=== PATIENT | male | born 1940 | race Caucasian/White ===

== ENCOUNTER 2017-03-08 15:24 | Inpatient (IN) | payer MEDICARE ==
[~2017-03-08] VITALS: Ht 175.3 cm; Wt 79.2 kg
[~2017-03-08 15:24] MED LIST: CO Q100C9 OR; ENAL10TA7 PO; FISH500C PO; PROBCAP4 OR; SIMV40TA OR; VITA-13
[2017-03-08 15:26] VITALS: BP 169/89; PULSE 75; RESP 15; TEMP 98.4; O2SAT 98
[2017-03-08] MEDS ORDERED: SODIUM CHLOR 0.9% 1000 ML INJ 1,000 ML IV ONE (15:44)
[2017-03-08 16:11] LABS: BASOPHIL # 0.1 TH/MM3 (0-0.2); BASOPHIL % 0.7 % (0.0-2.0); EOSINOPHIL # 0.3 TH/MM3 (0-0.4); EOSINOPHIL % 3.4 % (0.0-4.0); HEMATOCRIT 45.5 % (39.0-51.0); HEMO FLAGS DIFF FINAL; LYMPH % 25.6 % (9.0-44.0); LYMPHOCYTE # 2.5 TH/MM3 (1.0-4.8); MEAN CELL VOLUME 93.4 FL (80.0-100.0); MEAN CORPUSCULAR HEMOGLOBIN 33.2 PG (27.0-34.0); MEAN CORPUSCULAR HGB CONC 35.6 % (32.0-36.0); MONO % 9.3 % (0.0-8.0); PLATELET COUNT 245 TH/MM3 (150-450); RED BLOOD COUNT 4.88 MIL/MM3 (4.50-5.90); RED CELL DISTRIBUTION WIDTH 12.1 % (11.6-17.2); WHITE BLOOD COUNT 9.9 TH/MM3 (4.0-11.0)
[2017-03-08 16:12] LABS: I-STAT POTASSIUM 3.3 MMOL/L (3.5-4.9); I-STAT SODIUM 140 MMOL/L (138-146)
[2017-03-08] MEDS ORDERED: IOHEXOL 350 MG/ML 10 ML VIAL (for RAD DIAG) IVCONTRAST ONE (16:13)
[2017-03-08] MEDS ORDERED: MISCELLANEOUS NURSING INFORMATION XX PRN (16:15)
[2017-03-08] MEDS ORDERED: SODIUM CHLORIDE 0.9% 50 ML BAG IVF ONE (16:15)
[2017-03-08] MEDS ORDERED: ALTEPLASE DRIP IV ONE (16:15)
[2017-03-08] MEDS ORDERED: ALTEPLASE BOLUS 9 MG/9 ML SYR IV ONE (16:15)
--- NOTE | 2017-03-08 16:15 | RADRPT ---
EXAM DATE/TIME: 03/08/2017 15:46 [facility] COMPARISON: No previous studies available for comparison. INDICATIONS : Stroke Alert- Difficult with talking. RADIATION DOSE: 56.35 CTDIvol (mGy) This report was called by Dr Hoover to Dr. Cooper at 1558 hours. MEDICAL HISTORY : Non-responsive. SURGICAL HISTORY : Non-responsive. ENCOUNTER: Initial ACUITY: 1 day PAIN SCALE: Non-responsive LOCATION: cranial TECHNIQUE: Multiple contiguous axial images were obtained of the head. Using automated exposure control and adj ustment of the mA and/or kV according to patient size, radiation dose was kept as low as reasonably a chievable to obtain optimal diagnostic quality images. DICOM format image data is available electro nically for review and comparison. FINDINGS: CEREBRUM: There is generalized atrophy. Ventricles are normal in size. There is moderate to severe periventricu lar white matter low attenuation. Old lacune is present in the right basal ganglia. No evidence of m idline shift, mass lesion, hemorrhage or acute infarction. No extra-axial fluid collections are seen . POSTERIOR FOSSA: The cerebellum and brainstem are intact. The 4th ventricle is midline. The cerebellopontine angle i s unremarkable. EXTRACRANIAL: There is mucoperiosteal thickening in the right maxillary sinus. SKULL: The calvaria is intact. No evidence of skull fracture. CONCLUSION: 1. No acute intracranial abnormality is identified. 2. Chronic changes include moderate to severe periventricular white matter low attenuation characteri stic of chronic microvascular ischemia and old lacune in the right basal ganglia. Michael Hoover MD on March 08, 2017 at 16:11 Board Certified Radiologist. This report was verified electronically.
[2017-03-08 16:33] LABS: CREATINE KINASE 64 U/L (39-308)
--- NOTE | 2017-03-08 16:40 | RADRPT ---
EXAM DATE/TIME: 03/08/2017 15:54 [facility] COMPARISON: No previous studies available for comparison. INDICATIONS : Stroke alert, difficulty speaking. IV CONTRAST: 75 cc Omnipaque 350 (iohexol) IV ; Cumulative dose for multiple exams. RADIATION DOSE: 48.97 CTDIvol (mGy) ; Combined studies MEDICAL HISTORY : Non-responsive. SURGICAL HISTORY : Non-responsive. ENCOUNTER: Initial ACUITY: 1 day PAIN SCALE: Non-responsive LOCATION: cranial TECHNIQUE: Volumetric scanning was performed using a multi-row detector CT scanner. The data was post processed with a variety of visualization algorithms including full volume maximum intensity projection, multi -planar sliding thin slab reformation, curved planar reformation, and surface rendering techniques. Using automated exposure control and adjustment of the mA and/or kV according to patient size, radiat ion dose was kept as low as reasonably achievable to obtain optimal diagnostic quality images. DICO M format image data is available electronically for review and comparison. FINDINGS: Anterior circulation: The internal carotid arteries demonstrate no acute abnormality. There is atherosclerotic calcificatio n. A1 segments and more distal anterior cerebral arteries are symmetric and within normal limits. The middle cerebral artery branches demonstrate symmetric flow related enhancement. No aneurysm or high- grade stenosis is identified. Posterior circulation: The right vertebral artery appears occluded near the level of the foramen magnum. There is calcificat ion in the right vertebral artery. Left vertebral artery demonstrates enhancement. There is minimal f low in the distal basilar artery and there is an approximately 8 mm segment of occlusion in the dista l basilar artery likely related to thrombus. There are patent posterior communicating arteries bilate rally supplying the posterior cerebral arteries. CONCLUSION: The right distal vertebral artery is occluded near the level of the foramen magnum. Basilar artery de monstrates an 8 mm length segment of occlusion likely related to thrombus. Currently, the posterior c erebral artery blood flow is supplied by patent posterior communicating arteries bilaterally. Michael Hoover MD on March 08, 2017 at 16:30 Board Certified Radiologist. This report was verified electronically.
[2017-03-08 16:59] LABS: APTT (PATIENT) 22.8 SEC (24.3-30.1); PROTHROMBIN TIME - PATIENT 10.6 SEC (9.8-11.6)
--- NOTE | 2017-03-08 17:06 | RADRPT ---
EXAM DATE/TIME: 03/08/2017 15:54 [facility] COMPARISON: No previous studies available for comparison. INDICATIONS : Stroke alert, difficulty speaking. IV CONTRAST: 75 cc Omnipaque 350 (iohexol) IV ; Cumulative dose for multiple exams. RADIATION DOSE: 48.97 CTDIvol (mGy) ; Combined studies MEDICAL HISTORY : Non-responsive. SURGICAL HISTORY : Non-responsive. ENCOUNTER: Initial ACUITY: 1 day PAIN SCALE: 0/10 LOCATION: cranial Elevated flow velocities and ICA/CCA ratios have been found to correlate with increased degrees of vessel stenosis, calculated as percentage of diameter relative to a normal segment of distal ICA/CCA. TECHNIQUE: Volumetric scanning was performed using a multirow detector CT scanner. The data was post processed with a variety of visualization algorithms including full-volume maximum intensity projection, multip lanar sliding thin-slab reformation, curved-planar reformation, and surface-rendering techniques. Us ing automated exposure control and adjustment of the mA and/or kV according to patient size, radiatio n dose was kept as low as reasonably achievable to obtain optimal diagnostic quality images. DICOM f ormat image data is available electronically for review and comparison. FINDINGS: AORTIC ARCH: Great vessels demonstrate no acute finding. There is mild atherosclerotic disease of aorta. Left vert ebral artery originates from the arch. RIGHT CAROTID: Common carotid artery demonstrates no significant abnormality. There is noncalcified plaque in the ca rotid bulb. No significant stenosis is present. Internal carotid artery demonstrates no significant a bnormality. LEFT CAROTID: Common carotid artery demonstrates no significant abnormality. There is noncalcified plaque in the ca rotid bulb. No significant stenosis is present. Internal carotid artery demonstrates no significant a bnormality. VERTEBRALS: The right vertebral artery is occluded at the C1 level and just before entering the foramen magnum. L eft vertebral artery demonstrates no abnormality. CONCLUSION: 1. 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 2. Mild atherosclerotic calcification in the carotid bulbs bilaterally. However, no significant steno sis is present within either internal carotid artery. Michael Hoover MD on March 08, 2017 at 17:01 Board Certified Radiologist. This report was verified electronically.
[2017-03-08] MEDS: INSULIN ASPART SUPPLEMENTAL SCALE SQ SCH ×2 (17:15→18:00)
[2017-03-08] MEDS ORDERED: GLUCAGON 1 MG/ML VIAL OTHER PRN (17:15)
[2017-03-08] MEDS ORDERED: LABETALOL HCL 100 MG/20 ML VIAL IV PRN (17:15)
[2017-03-08] MEDS ORDERED: DEXTROSE 50% IN WATER 50 ML VIAL(D50) IV PUSH PRN (17:15)
--- NOTE | 2017-03-08 17:18 | RADRPT ---
EXAM DATE/TIME: 03/08/2017 16:24 [facility] COMPARISON: No previous studies available for comparison. INDICATIONS : Stroke alert. MEDICAL HISTORY : unobtainable SURGICAL HISTORY : unobtainable ENCOUNTER: Initial ACUITY: 1 day PAIN SCORE: Non-responsive. LOCATION: Bilateral upper chest FINDINGS: Nodular opacity in the central right lower lung zone may reflect an enlarged vessel on end. Lungs are otherwise clear. Cardiac base contours are within normal limits. Bony thorax is intact. CONCLUSION: 1. Approximately 1 cm nodular opacity in the central right lower lung zone likely reflects an enlarge d pulmonary vessel on end. Consider formal PA and lateral views of the chest for better evaluation on ce patient is more stable. Aidan Becerra MD on March 08, 2017 at 17:15 Board Certified Radiologist. This report was verified electronically.
--- NOTE | 2017-03-08 17:31 | PD ---
HPI Chief Complaint: Neuro Symptoms/ Deficits Time Seen by Provider: 15:43 Travel History International Travel<30 days: No Contact w/Intl Traveler<30days: No Traveled to known affect area: No History of Present Illness HPI 76 old man presents emergent arm brought in by his for abnormal behavior. He was well until noon. Started getting some headache there. says he described it is pretty significant. Around 1:00 he started getting speech difficulties with slurred speech and word finding difficulties. Around 2:00 he started having obvious confusion and difficulty with simple past. An emergent part areas not able to follow questions are answered commands. History Past Medical History Narrative Medical History of occult wasn't, recently started Antabuse On medicine for dementia History of diabetes in the remote past, no diabetes since gastric bypass in 2011 Hypertension Tetanus Vaccination: Unknown Social History Alcohol Use: Yes (COUPLE DRINKS A DAY) Tobacco Use: No Allergies-Medications (Allergen,Severity, Reaction): Coded Allergies: Sulfa (Sulfonamide Antibiotics) (Unverified Allergy, Severe, 03/08/17) Reported Meds & Prescriptions Reported Meds & Active Scripts Active Reported Vitamin D3 (Cholecalciferol) 1,000 Unit Tab 1,000 Unit .XX Fish Oil 500 Mg Cap 500 Mg PO Co Q 10 (Coenzyme Q10) 100 Mg Cap 100 Mg OR Probiotic Acidophilus (Acidophilus) Cap 1 OR BID Enalapril Maleate/Hydroch (Enalapril Maleate & Hydrochlor) 10 Mg Tab 10 Mg PO BID Simvastatin 40 Mg Tab 40 Mg OR HS Review of Systems Except as stated in HPI: all other systems reviewed are Neg Physical Exam Narrative GENERAL: 76 old man, ill-appearing, agitated, confused. SKIN: Focused skin assessment warm/dry. HEAD: Atraumatic. Normocephalic. EYES: Pupils equal and round. No scleral icterus. No injection or drainage. ENT: No nasal bleeding or discharge. Mucous membranes pink and moist. NECK: Trachea midline. No JVD. CARDIOVASCULAR: Regular rate and rhythm. No murmur appreciated. RESPIRATORY: No accessory muscle use. Clear to auscultation. Breath sounds equal bilaterally. GASTROINTESTINAL: Abdomen soft, non-tender, nondistended. Hepatic and splenic margins not palpable. MUSCULOSKELETAL: No obvious deformities. No clubbing. No cyanosis. No edema. NEUROLOGICAL: Little bit agitated but overall decreased alertness as far as responding to external stimuli. He has no obvious facial droop or cranial nerve deficits. He cannot answer questions or follow commands. If you ask him his name he will saddle no. He seems a log as a certain stereotyped phrases such as I don't know. He will not follow commands. Yes, hold his arms up he seems always dropped the right first a could suggest a little bit of droop. He is no obvious gross weakness. Sensation appears to be intact throughout. He has no sharon-neglect or gaze palsies. NIH stroke scale of 8. PSYCHIATRIC: Appropriate mood and affect; insight and judgment normal. Data Data Last Documented VS Vital Signs Date Time Temp Pulse Resp B/P (MAP) Pulse Ox O2 Delivery O2 Flow Rate FiO2 03/08/17 15:55 Nasal Cannula 2.00 03/08/17 15:26 98.4 75 15 169/89 (115) 98 Orders Orders Diet Npo (03/08/17 Dinner) Activity Bed Rest (03/08/17 ) Electrocardiogram (03/08/17 ) I-Stat Creatinine (03/08/17 15:44) I-Stat Profile (03/08/17 15:44) Prothrombin Time / Inr (Pt) (03/08/17 15:44) Act Partial Throm Time (Ptt) (03/08/17 15:44) Complete Blood Count With Diff (03/08/17 15:44) Fibrinogen (03/08/17 15:44) Creatine Kinase (Cpk) (03/08/17 15:44) Troponin I (03/08/17 15:44) Ua Includes Microscopic (03/08/17 15:44) Drug Screen, Random Urine (03/08/17 15:44) Type And Screen (03/08/17 15:44) Ct Brain W/O Iv Contrast(Rout) (03/08/17 ) Consult Neurology (03/08/17 ) Blood Glucose (03/08/17 15:44) Ecg Monitoring (03/08/17 15:44) Neuro Checks Q2HX12,Q4H (03/08/17 15:44) Nursing Bedside Swallow Assess .ONCE (03/08/17 15:44) Iv Access Insert/Monitor (03/08/17 15:44) NPO (03/08/17 15:44) Oximetry (03/08/17 15:44) Oxygen Administration (03/08/17 15:44) Sodium Chlor 0.9% 1000 Ml Inj (Ns 1000 M (03/08/17 15:44) Resp Oxygen Juliocesar C Titrat 1-4 L (03/08/17 15:44) Cath For Specimen (03/08/17 15:44) Chest, Single Ap (03/08/17 ) Cta Neck W Iv Contrast W 3d (03/08/17 ) Cta Brain W Iv Contrast W 3d (03/08/17 ) Alcohol (Ethanol) (03/08/17 15:49) ^ Call Pharmacy (03/08/17 16:12) Nih Stroke Scale - Nihss .ONCE (03/08/17 16:12) Urinary Catheter Insert/Apply (03/08/17 16:12) Anticoagulant Alert (03/08/17 16:12) ^ Post Infusion Restrictions (03/08/17 16:12) ^ Medication Alert (03/08/17 16:12) Vital Signs (Adult) .As directed (03/08/17 16:12) Notify Dr: Blood Pressure (03/08/17 16:12) ^ Medication Alert (03/08/17 16:12) Alteplase Bolus (Activase Bolus) (03/08/17 16:15) Alteplase Drip (Activase Drip) (03/08/17 16:15) Sodium Chloride 0.9% Inj (Ns Inj) (03/08/17 16:15) [facility] Nursing Information (03/08/17 16:15) Resp Oxygen Juliocesar C Titrat 1-4 L (03/08/17 ) Ct Brain W/O Iv Contrast(Rout) (03/09/17 ) Iohexol 350 Inj (Omnipaque 350 Inj) (03/08/17 16:13) (Hub Use Only)Inp Phy Cons/Ref (03/08/17 ) Admit Order (Ed Use Only) (03/08/17 ) Labs Laboratory Tests Test 03/08/17 15:45 03/08/17 16:06 White Blood Count 9.9 TH/MM3 Red Blood Count 4.88 MIL/MM3 Hemoglobin 16.2 GM/DL Hematocrit 45.5 % Mean Corpuscular Volume 93.4 FL Mean Corpuscular Hemoglobin 33.2 PG Mean Corpuscular Hemoglobin Concent 35.6 % Red Cell Distribution Width 12.1 % Platelet Count 245 TH/MM3 Mean Platelet Volume 8.0 FL Neutrophils (%) (Auto) 61.0 % Lymphocytes (%) (Auto) 25.6 % Monocytes (%) (Auto) 9.3 % Eosinophils (%) (Auto) 3.4 % Basophils (%) (Auto) 0.7 % Neutrophils # (Auto) 6.0 TH/MM3 Lymphocytes # (Auto) 2.5 TH/MM3 Monocytes # (Auto) 0.9 TH/MM3 Eosinophils # (Auto) 0.3 TH/MM3 Basophils # (Auto) 0.1 TH/MM3 CBC Comment DIFF FINAL Differential Comment Prothrombin Time 10.6 SEC Prothromb Time International Ratio 1.0 RATIO Activated Partial Thromboplast Time 22.8 SEC Fibrinogen 450 mg/dL Ethyl Alcohol Level LESS THAN 3 MG/DL Bedside Hemoglobin 15.3 G/DL Bedside Hematocrit 45.0 % Bedside Sodium 140 MMOL/L Bedside Potassium 3.3 MMOL/L Bedside Chloride 104 MMOL/L Bedside Blood Urea Nitrogen 13 MG/DL Bedside Creatinine 0.8 MG/DL Bedside Glucose 103 MG/DL Total Creatine Kinase 64 U/L Troponin I LESS THAN 0.02 NG/ML MDM Medical Decision Making Medical Screen Exam Complete: Yes Emergency Medical Condition: Yes Differential Diagnosis CVA, seizure, bleed, other Narrative Course 76 old man presents emergency department as a stroke alert. He looked a little bit ill. He had a stroke scale 8 based mostly on inability answer or follow commands aphasia and maybe a little bit of right sided drift. No other obvious lateralizing symptoms. CT was negative for acute bleed. Patient was given TPA. Time frame of last seen normal 1 PM put him right at 3 hours. He has a remote history of diabetes in the past but no history of diabetes now. This was discussed with Dr. Barakat. Decision was made after discussion with the family to proceed with TPA. Verbal consent was obtained from the . Patient will be admitted to the ICU. Critical Care Narrative Aggregate critical care time was 20 minutes. Time to perform other separately billable procedures was not included in the critical care time. My time did not include minutes spent treating any other patients simultaneously or on activities that did not directly contribute to the patient's treatment. The services I provided to this patient were to treat and/or prevent clinically significant deterioration that could result in: or disability. Worsening stroke. I provided critical care services requiring my management, as noted below: Chart data review, documentation time, medication orders and management, vital sign assessments/reviewing monitor data, ordering and reviewing lab tests, ordering and interpreting/reviewing x-rays and diagnostic studies, care of the patient and discussion of the patient with the admitting physicians. Diagnosis Primary Impression: Acute CVA (cerebrovascular accident) Admitting Information Admitting Physician Requests: Admit Karan Cooper MD Mar 08, 2017 17:31
[2017-03-08 18:04] LABS: BLOOD, URINE NEG (NEG); GLUCOSE,URINE NEG (NEG); KETONE, URINE 80 mg/dL (NEG); NITRITE,URINE NEG (NEG); SQUAMOUS EPITHELIAL CELL URINE <1 /hpf (0-5); URINE COLOR LIGHT-YELLOW (YELLW/STRAW)
[2017-03-08] MEDS ORDERED: LABETALOL HCL 100 MG/20 ML VIAL IV PUSH PRN (18:15)
--- NOTE | 2017-03-08 18:21 | HHI.HP ---
HPI Service Critical Care Medicine Primary Care Physician Unknown Admission Diagnosis CVA Diagnosis: Chief Complaint: Garbled speech, confusion, headache. Travel History International Travel<30 Days: No Contact w/Intl Traveler <30 Da: No Traveled to Known Affected Are: No History of Present Illness 76 y/o man right handed man developed garbled speech and confusion. 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 Received tPA about 3 hours after onset. Initially very weak right arm. After tPA he has improved motor strength right arm, but not normal. History significant for diabetes, cured by gastric bypass surgery. Heavy alcohol consumption history, now on Antabuse and not drinking. Has had diagnosis of dementia since 2015. Neurology consult expressed concern about risk of bleed after tPA, will control BP appropriately with that in mind. Review of Systems ROS Confused, unobtainable. Past Family Social History Allergies: Coded Allergies: Sulfa (Sulfonamide Antibiotics) (Unverified Allergy, Severe, 03/08/17) Physical Exam Vital Signs Vital Signs Date Time Temp Pulse Resp B/P (MAP) Pulse Ox O2 Delivery O2 Flow Rate FiO2 03/08/17 15:55 Nasal Cannula 2.00 03/08/17 15:26 98.4 75 15 169/89 (115) 98 Physical Exam Gen: Ill-appearing, confused. Head: Atraumatic. Neck: Supple, airway widely patent. No obstruction. Lungs: Clear, no adventitious sounds. Heart: NL S1S2, RRR. No JVD. Abdomen: Soft, no guarding. Extremities: Warm, well perfused. Neuro: PINO, 3 mm malcom. Right arm 2/5, left arm 4/5. Opens eyes to voice. Does not track for more than 3 secs. Seems to focus. Protects airway. Speech confused , garbled. Laboratory Laboratory Tests Test 03/08/17 15:45 03/08/17 16:06 03/08/17 17:00 White Blood Count 9.9 Red Blood Count 4.88 Hemoglobin 16.2 Hematocrit 45.5 Mean Corpuscular Volume 93.4 Mean Corpuscular Hemoglobin 33.2 Mean Corpuscular Hemoglobin Concent 35.6 Red Cell Distribution Width 12.1 Platelet Count 245 Mean Platelet Volume 8.0 Neutrophils (%) (Auto) 61.0 Lymphocytes (%) (Auto) 25.6 Monocytes (%) (Auto) 9.3 Eosinophils (%) (Auto) 3.4 Basophils (%) (Auto) 0.7 Neutrophils # (Auto) 6.0 Lymphocytes # (Auto) 2.5 Monocytes # (Auto) 0.9 Eosinophils # (Auto) 0.3 Basophils # (Auto) 0.1 CBC Comment DIFF FINAL Differential Comment Prothrombin Time 10.6 Prothromb Time International Ratio 1.0 Activated Partial Thromboplast Time 22.8 Fibrinogen 450 Ethyl Alcohol Level LESS THAN 3 Bedside Hemoglobin 15.3 Bedside Hematocrit 45.0 Bedside Sodium 140 Bedside Potassium 3.3 Bedside Chloride 104 Bedside Blood Urea Nitrogen 13 Bedside Creatinine 0.8 Bedside Glucose 103 Total Creatine Kinase 64 Troponin I LESS THAN 0.02 Result Diagram: 03/08/17 9980 Caprini VTE Risk Assessment Caprini VTE Risk Assessment: No/Low Risk (score <= 1) Caprini Risk Assessment Model Point Value = 1 Point Value = 2 Point Value = 3 Point Value = 5 Age 41-60 Minor surgery BMI > 25 kg/m2 Swollen legs Varicose veins or History of unexplained or recurrent spontaneous Oral contraceptives or hormone replacement Sepsis (< 1 month) Serious lung disease, including pneumonia (< 1 month) Abnormal pulmonary function Acute myocardial infarction Congestive heart failure (< 1 month) History of inflammatory bowel disease Medical patient at bed rest Age 61-74 Arthroscopic surgery Major open surgery (> 45 min) Laparoscopic surgery (> 45 min) Malignancy Confined to bed (> 72 hours) Immobilizing plaster cast Central venous access Age >= 75 History of VTE Family history of VTE Factor V Leiden Prothrombin [id number] Lupus anticoagulant Anticardiolipin antibodies Elevated serum homocysteine Heparin-induced thrombocytopenia Other congenital or acquired thrombophilia Stroke (< 1 month) Elective arthroplasty Hip, pelvis, or leg fracture Acute spinal cord injury (< 1 month) Prophylaxis Regimen Total Risk Factor Score Risk Level Prophylaxis Regimen 0-1 Low Early ambulation 2 Moderate Order ONE of the following: *Sequential Compression Device (SCD) *Heparin 5000 units SQ BID 3-4 Higher Order ONE of the following medications: *Heparin 5000 units SQ TID *Enoxaparin/Lovenox 40 mg SQ daily (WT < 150 kg, CrCl > 30 mL/min) *Enoxaparin/Lovenox 30 mg SQ daily (WT < 150 kg, CrCl > 10-29 mL/min) *Enoxaparin/Lovenox 30 mg SQ BID (WT < 150 kg, CrCl > 30 mL/min) AND/OR *Sequential Compression Device (SCD) 5 or more Highest Order ONE of the following medications: *Heparin 5000 units SQ TID (Preferred with Epidurals) *Enoxaparin/Lovenox 40 mg SQ daily (WT < 150 kg, CrCl > 30 mL/min) *Enoxaparin/Lovenox 30 mg SQ daily (WT < 150 kg, CrCl > 10-29 mL/min) *Enoxaparin/Lovenox 30 mg SQ BID (WT < 150 kg, CrCl > 30 mL/min) AND *Sequential Compression Device (SCD) Assessment and Plan Assessment and Plan Assessment: 1. Acute CVA. 2. Hypertension. 3. Chronic alcoholism. 4. Dementia Plan: 1. Maintain BP < 160/90. 2. No antiplatelet rx tonight. 3. Serial neuro exams. 4. Maintenance iv fluid. 5. Cardiac ECHO a.m. 6. Airway precautions. 7. Protonix. 8. SCDs. Overall impression: Acute CVA. Unstable hemodynamics and critically ill. Basilar artery distribution thrombus. Received tPA. Patient is not a candidate for IR extraction treatment; patient is a chronic alcoholic, very frail, and has advancing dementia over past 2 years with significant worsening over past [address] Jamil who recommends lower blood pressure control below 160/90 range. I had a lengthy discussion with his and her neighbor in the ED. I explained the risks and benefits of clot extraction in this location. They have decided to not attempt that and will stay at [facility] for care. Critical Care 45 mins Nate Siddiqui MD Mar 08, 2017 18:21
[2017-03-08 18:48] VITALS: BP 172/89
[2017-03-08] MEDS: hydrALAZINE HCL 20 MG/ML VIAL IV PUSH PRN ×2 (19:40→21:53)
[2017-03-08 20:00] VITALS: BP 172/84; PULSE 78; PULSE 84; RESP 22; TEMP 97.9; O2SAT 98
[2017-03-08] MEDS: niCARdipine INJ 25 MG in SODIUM CHLOR 0.9% 250 ML INJ 250 ML IV PRN (20:12)
[2017-03-08 20:18] VITALS: O2SAT 97
[2017-03-08] MEDS ORDERED: HYDROCHLOR PO SCH (21:00)
[2017-03-08] MEDS ORDERED: ENALAPRIL MALEATE PO SCH (21:00)
[2017-03-08] MEDS: PRAVASTATIN SOD 80 MG TAB PO SCH (21:00)
[2017-03-08] MEDS ORDERED: POTASSIUM CHLOR 40 MEQ PREMIX 100 ML IV PRN ×2 (21:45)
[2017-03-08] MEDS ORDERED: MAGNESIUM OXIDE 400 MG TAB PO PRN (21:45)
[2017-03-08] MEDS ORDERED: POTASSIUM CHLORIDE 25 MEQ EFFERVESCENT TAB PO PRN (21:45)
[2017-03-08] MEDS ORDERED: POTASSIUM PHOSPHATE MONOBASIC 500 MG TAB PO PRN (21:45)
[2017-03-08] MEDS ORDERED: SODIUM PHOSPHATE INJ 30 MMOL in SODIUM CHLOR 0.9% 250 ML INJ 240 ML IV PRN (21:45)
[2017-03-08] MEDS ORDERED: MAGNESIUM SULFATE INJ 2 GM in SODIUM CHLORIDE 0.9% INJ 96 ML IV PRN (21:45)
[2017-03-08] MEDS ORDERED: POTASSIUM PHOSPHATE INJ 30 MMOL in SODIUM CHLOR 0.9% 250 ML INJ 250 ML IV PRN (21:45)
[2017-03-08] MEDS ORDERED: MAGNESIUM SULFATE INJ 4 GM in SODIUM CHLORIDE 0.9% INJ 92 ML IV PRN (21:45)
[2017-03-08] MEDS ORDERED: POTASSIUM CHLOR 20 MEQ PREMIX 100 ML IV PRN (21:45)
[2017-03-08] MEDS ORDERED: POTASSIUM PHOSPHATE MONOBASIC 500 MG TAB PO/TUBE PRN (21:45)
[2017-03-08 22:00] VITALS: PULSE 96
[2017-03-08] MEDS: POTASSIUM CHLOR 20 MEQ PREMIX 100 ML IV PRN (22:37)
--- NOTE | 2017-03-08 23:39 | MB ---
cc: KEATON ALMARAZ MD DATE OF CONSULTATION 03/08/17 REASON FOR CONSULTATION Stroke alert. HISTORY OF PRESENT ILLNESS Mr. Oseguera is a 76-year-old male who presented to the [facility] Emergency Room brought by his for noticing an abnormal behavior that started fairly afternoon where he complained of headache, as per significant headache, then around 1:00 p.m. today, 03/08/2017, he started getting speech difficulty, slurred speech and word finding difficulties. Then this was followed by confusion. Thus he was brought by his . The patient NIH stroke scale was 8. Head CT scan did not show any acute intracranial bleeding. Thus, he was a candidate for TPA that he received intravenously. A CTA of the head and neck also was ordered and the patient admitted to the ICU. After he received the TPA there was some mild blood from the mucosa of the mouth. I have discussed the condition with the and her neighbor and Dr. aSmano, the senior analysis specialist and I let the know that there are only a few centers that have ability of working on a high grade vertebral artery stenosis, however, given the condition of the patient, age and the very high-grade stenosis the agreed on continuing of supportive therapy. Head CTA revealed right distal vertebral artery occlusion at the level of the foramen magnum and a basilar artery with 8 mm length segment occlusion related to the thrombus. Neck CTA revealed occlusion of the distal right vertebral artery around the C1 level near the foramen magnum with mild atherosclerotic calcification of the carotid bulbs bilaterally. No significant stenosis in either ICA. REVIEW OF SYSTEMS A 12-point review of systems negative except for what is stated in the HPI. ALLERGIES SULFA. FAMILY HISTORY Unable to obtain. SOCIAL HISTORY Daily couple of drinks. No tobacco. PAST MEDICAL HISTORY Currently on Antabuse. PAST MEDICAL HISTORY Hypertension, dementia, diabetes, hypertension. PAST SURGICAL HISTORY Gastric bypass. MEDICATIONS 1. Vitamin D3. 2. Fish oil. 3. CoQ. 4. Probiotic. 5. Enalapril. 6. Simvastatin. PHYSICAL EXAMINATION GENERAL: Awake. Irritable, not oriented, agitated. HEENT: Atraumatic, normocephalic. Congested flushed face. Intact hearing. CARDIOVASCULAR: Regular rate and rhythm. RESPIRATORY: Clear to auscultation. No wheezes. GASTROINTESTINAL: Soft, nontender. MUSCULOSKELETAL: Moves four extremities equally. No edema, no cyanosis. NEUROLOGIC: Awake, not oriented to person, place or time. Responds to verbal commands by mumbling the word okay. He has no facial asymmetry. No gaze deviation. Pupils 3 mm equal reacting. Moves all extremity. Unable to accurately assess the motor system due to the patient being minimally verbal. His right upper and lower extremity seemed to be weaker than the left. He cannot hold the particularly the right lower extremity where he cant hold it straight up, however, unable to accurately assess. Reflexes 2+ bilateral, symmetrical. LABORATORY DATA White blood cells 9.9, hemoglobin 16.2, platelet 245, sodium 140, potassium 3.3, BUN 13, creatinine 0.8. UA is negative. DIAGNOSTICS IMAGING STUDIES - Head CT without contrast revealed no acute intracranial abnormality, chronic changes include moderate severe periventricular white matter. Low attenuation characteristic of chronic vascular ischemia and old lacunar infarcts in the right basal ganglia - Head CTA with IV contrast revealed right distal vertebral artery is occluded near the level of the foramen magnum. Basilar artery demonstrates an 8 mm length segment of occlusion likely relate to the thrombus. - Neck CTA revealed occlusion of the ___vertebral around C1 level near the foramen magnum. Mild atherosclerotic calcification in the carotid bulbs bilaterally. DIAGNOSTIC IMPRESSION 1. Acute ischemic thrombotic posterior circulation stroke. 2. Hypertension. 3. History of chronic alcoholism. 4. Dementia. PLAN 1. Neuro checks q. one hourly. 2. Maintain blood pressure less than 160/90. 3. No antiplatelet or anticoagulation for the next 24 hours. 4. Cardiac echo. 5. Telemetry. 6. Repeat head CT scan after 12 hours or if there is change in the neurologic status. 7. SCD, DVT prophylaxis. 8. GI prophylaxis. Thank you for the opportunity to participate in the care of your patient. MD CLIFTON Jorge/SEBASTIAN /10:00 PM /11:01 PM CHRISTOPH
[2017-03-09] VITALS (14 sets, daily range): BP systolic 136–156; BP diastolic 69–78; PULSE 65–98; RESP 19–29; TEMP 98.1–99.1; O2SAT 97–100
[2017-03-09] MEDS: niCARdipine INJ 25 MG in SODIUM CHLOR 0.9% 250 ML INJ 250 ML IV PRN ×4 (01:32→18:19)
[2017-03-09] MEDS: POTASSIUM CHLOR 20 MEQ PREMIX 100 ML IV PRN (02:28)
[2017-03-09] MEDS: INSULIN ASPART SUPPLEMENTAL SCALE SQ SCH ×5 (05:49→23:52)
[2017-03-09] MEDS: SODIUM CHLOR 0.9% 1000 ML INJ 1,000 ML IV SCH ×2 (07:28→22:24)
--- NOTE | 2017-03-09 07:57 | HHI.CCPN ---
Subjective Remarks/Hospital Course 76 y/o man right handed man developed garbled speech and confusion. 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 Received tPA about 3 hours after onset. Initially very weak right arm. After tPA he has improved motor strength right arm, but not normal. History significant for diabetes, cured by gastric bypass surgery. Heavy alcohol consumption history, now on Antabuse and not drinking. Has had diagnosis of dementia since 2015. Neurology consult expressed concern about risk of bleed after tPA, will control BP appropriately with that in mind. Subjective: 03/09 Following simple commands. Answers yes/no questions and denies complaint. Followup CT brain this afternoon. Cardene on standby. Reviewed telemetry, sinus rhythm. Objective Vital Signs Date Time Temp Pulse Resp B/P (MAP) Pulse Ox O2 Delivery O2 Flow Rate FiO2 03/09/17 07:20 90 139/73 03/09/17 04:00 99.1 24 100 03/08/17 20:18 Nasal Cannula 4.00 Intake and Output 03/09/17 03/09/17 03/09/17 07:59 15:59 23:59 Intake Total 1595 ml Output Total 700 ml Balance 895 ml Result Diagram: 03/08/17 1545 Objective Remarks Sinus rhythm 80s, 147/78 MAP 105 sats 100% on 3.5 L NC. GENERAL: Laying flat in ISC bed, in soft wrist restraints. SKIN: Warm and dry. HEAD: Atraumatic. EYES: 2mm and sluggishly reactive. No scleral icterus. ENT: No nasal bleeding or discharge. Mucous membranes dry NECK: Trachea midline. No JVD. CARDIOVASCULAR: Regular rate and rhythm, sinus rhythm on the monitor with rate 70-80. soft 2/6 systolic murmur left lower sternal border RESPIRATORY: Clear to auscultation. Breath sounds equal bilaterally. Airway patent GASTROINTESTINAL: Abdomen soft, non-tender, nondistended. Bowel sounds present : Moreno in place with yellow urine output. No hematuria MUSCULOSKELETAL: Extremities without clubbing, cyanosis, or edema. No obvious deformities. NEUROLOGICAL: Awake and alert with spontaneous eye opening and tracking during conversation. Does not have obvious facial droop. Does not protrude tongue to command. Does not cooperate with extraocular movements. No nystagmus noted. Says "yes no", unable to answer questions of orientation, speech slightly garbled. Aphasia - mixed but primarily expressive. Moves feet and bilateral hands to command but doesn't fully cooperate with motor exam. Reports intact sensation of extremities to soft touch. A/P Assessment and Plan NEURO: Acute ischemic stroke, vertebrobasilar Alcohol dependence Dementia CTA brain 03/08 - Occlusion of right distal vertebral artery. 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 Posterior cerebral artery flow supplied by Pcom CT brain 03/08 - chronic moderate to severe periventricular white matter changes characteristic of chronic microvascular ischemia, old lacune R basal ganglia. Received tPA 03/08. Was not a candidate for IR intervention No antiplatelet therapy for 24 hours status post TPA Repeat head CT pending Neurology following, Dr. Jamil. PT/OT/ST RESP: Monitoring for airway protection. On nasal cannula. CV: Hypertension Hyperlipidemia On telemetry monitoring. In sinus rhythm. EKG 03/08/17 -NSR rate 77. 1st degree AVB. No ST/T abnormalities. Cardene drip on hold. Maintaining blood pressure less than 160/90 per neurology recommendation Follow-up 2-D echo Home medications simvastatin 40 mg by mouth daily at bedtime, enalapril 10 mg by mouth twice a day. HCTZ 25 mg daily and enalapril 10 mg daily have been ordered, pravastatin 80 g by mouth daily at bedtime. On hold pending swallow evaluation GI: Speech therapy to evaluate for dysphagia FEN/RENAL: Moreno in place and will maintain for 24 hours status post TPA On maintenance IV fluids with 0.9 NaCl at 70 mL per hour ICU electrolyte replacement protocol. ID: Monitor for signs and symptoms of infection HEME: Hemoglobin 16.2 on admission with normal platelet counts. Status post TPA . Monitoring for evidence of bleeding. ENDO: Low-dose insulin sliding scale with bedside glucose every 6 hours PROPH: SCDs for DVT prophylaxis. No pharmacologic DVT prophylaxis for 24 hours post TPA. Protonix 40 mg IV daily for stress ulcer prophylaxis. ACCESS: Peripheral IV providing adequate access at this time. Patient has a living will that states he would not want to dying process prolonged in the setting of terminal condition, end-stage condition, vegetative state. His is at bedside. She states that he would wish to be DNR/DNI. I am changing CODE STATUS. Level 3 Gloria Flores MD Mar 09, 2017 07:57
[2017-03-09] MEDS: HYDROCHLOROTHIAZIDE 25 MG TAB PO SCH (08:02)
[2017-03-09] MEDS: ENALAPRIL MALEATE 10 MG TAB PO SCH (08:02)
[2017-03-09] MEDS ORDERED: MIDAZOLAM HCL 5 MG/ML VIAL (1 ML) ONE (09:12)
[2017-03-09] MEDS: PANTOPRAZOLE SODIUM 40 MG VIAL IV PUSH SCH (09:24)
--- NOTE | 2017-03-09 15:29 | HHI.PR ---
Review/Management Diagnosis 1. Acute ischemic thrombotic posterior circulation stroke. 2. Hypertension. 3. History of chronic alcoholism. 4. Dementia. Plan 1. Neuro checks q. one hourly. 2. Maintain blood pressure less than 160/90. 3. No antiplatelet or anticoagulation for the next 24 hours. 4. Cardiac echo. 5. Telemetry. 6. Repeat head CT scan after 12 hours or if there is change in the neurologic status. 7. SCD, DVT prophylaxis. 8. GI prophylaxis. Diagnosis/Plan: Subjective Subjective Comments Stable neurologic status s/p iv tPA No family at bed side Had CT scan with no acute abnormality Active Medications Current Medications Medications (Trade) Dose Ordered Sig/Rafael Route Start Time Stop Time Status Last Admin Miscellaneous Information No Heparin, Warfarin, Aspir... UNSCH PRN XX 03/08/17 16:15 03/09/17 16:14 Sodium Chloride 1,000 ml @ 70 mls/hr [id number] IV 03/08/17 17:10 03/09/17 07:28 (NovoLOG SUPPLEMENTAL SCALE) 1 Q6HR SQ 03/08/17 17:15 (D50w (Vial) Inj) 50 ml UNSCH PRN IV PUSH 03/08/17 17:15 (Glucagon Inj) 1 mg UNSCH PRN OTHER 03/08/17 17:15 (Pravachol) 80 mg HS PO 03/08/17 21:00 (Trandate Inj) 20 mg Q3H PRN IV PUSH 03/08/17 18:15 (Apresoline Inj) 10 mg Q30M PRN IV PUSH 03/08/17 18:15 03/08/17 21:53 Nicardipine HCl 25 mg/Sodium Chloride 260 ml @ 52 mls/hr Q5H PRN IV 03/08/17 18:03 03/09/17 07:20 (Vasotec) 10 mg DAILY PO 03/09/17 09:00 (Hydrodiuril) 25 mg DAILY PO 03/09/17 09:00 Potassium Chloride 100 ml @ 50 mls/hr Q2H PRN IV 03/08/17 21:45 Potassium Chloride 100 ml @ 50 mls/hr Q2H PRN IV 03/08/17 21:45 (K-Lyte Cl Eff) 50 meq UNSCH PRN PO 03/08/17 21:45 Potassium Chloride 100 ml @ 25 mls/hr UNSCH PRN IV 03/08/17 21:45 Potassium Chloride 100 ml @ 50 mls/hr Q2H PRN IV 03/08/17 21:45 03/09/17 02:28 Magnesium Sulfate 4 gm/Sodium Chloride 100 ml @ 50 mls/hr UNSCH PRN IV 03/08/17 21:45 (Mag-Ox) 800 mg UNSCH PRN PO 03/08/17 21:45 Magnesium Sulfate 2 gm/Sodium Chloride 100 ml @ 50 mls/hr UNSCH PRN IV 03/08/17 21:45 (K-Phos) 2,000 mg Q4H PRN PO 03/08/17 21:45 Sodium Phosphate 30 mmol/Sodium Chloride 250 ml @ 42 mls/hr UNSCH PRN IV 03/08/17 21:45 (K-Phos) 2,000 mg UNSCH PRN PO/TUBE 03/08/17 21:45 Potassium Phosphate 30 mmol/ Sodium Chloride 260 ml @ 42 mls/hr UNSCH PRN IV 03/08/17 21:45 (Protonix Inj) 40 mg Q24H IV PUSH 03/09/17 09:00 03/09/17 09:24 Allergies Allergies Coded Allergies Sulfa (Sulfonamide Antibiotics) (Unverified Allergy, Severe, 03/08/17) Review of Systems All other ROS: ROS reviewed as documented in chart Exam I&O / VS 03/09/17 03/09/17 03/10/17 15:00 23:00 07:00 Intake Total 950 ml Output Total 900 ml Balance 50 ml Intake IV Total 950 ml Output Urine Total 900 ml Vital Signs Date Time Temp Pulse Resp B/P (MAP) Pulse Ox O2 Delivery O2 Flow Rate FiO2 03/09/17 14:00 66 03/09/17 12:00 69 03/09/17 12:00 98.6 69 23 136/74 (94) 98 03/09/17 10:00 80 03/09/17 08:41 100 Nasal Cannula 4.00 03/09/17 08:00 99.1 82 21 152/78 (102) 100 03/09/17 08:00 90 03/09/17 07:20 90 139/73 03/09/17 07:00 100 Nasal Cannula 4.00 03/09/17 06:00 91 03/09/17 04:07 93 143/70 03/09/17 04:00 99.1 94 24 148/70 (96) 100 03/09/17 04:00 93 03/09/17 02:00 98 03/09/17 01:32 89 159/76 03/09/17 00:00 98.3 90 22 156/74 (101) 100 03/09/17 00:00 98 03/09/17 00:00 98.3 90 22 156/74 (101) 100 03/08/17 22:00 96 03/08/17 20:18 97 Nasal Cannula 4.00 03/08/17 20:12 82 170/86 03/08/17 20:00 97.9 78 22 172/84 (113) 98 03/08/17 20:00 84 03/08/17 18:48 68 20 172/89 (116) 100 Nasal Cannula 2.00 03/08/17 15:55 Nasal Cannula 2.00 Exam Comments GENERAL: Awake. Irritable, not oriented, calm. HEENT: Atraumatic, normocephalic. Congested flushed face. Intact hearing. CARDIOVASCULAR: Regular rate and rhythm. RESPIRATORY: Clear to auscultation. No wheezes. GASTROINTESTINAL: Soft, nontender. MUSCULOSKELETAL: Moves four extremities equally. No edema, no cyanosis. NEUROLOGIC: Awake, not oriented to person, place or time. Responds to verbal commands by saying "ok", no facial asymmetry. No gaze deviation. Pupils 3 mm equal reacting. Moves all extremity. Unable to accurately assess the motor system due to the patient being minimally verbal. His right upper and lower extremity seemed to be weaker than the left. He cannot hold the particularly the right lower extremity where he cant hold it straight up, however, unable to accurately assess. Reflexes 2+ bilateral, symmetrical. Objective Radiology Results Last 72 hours Impressions Neck CTA 03/08/17 0000 Signed Impressions: Service Date/Time: Wednesday, March 08, 2017 15:54 - CONCLUSION: 1. 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 2. Mild atherosclerotic calcification in the carotid bulbs bilaterally. However , no significant stenosis is present within either internal carotid artery. Michael Hoover MD Head CTA 03/08/17 0000 Signed Impressions: Service Date/Time: Wednesday, March 08, 2017 15:54 - CONCLUSION: The right distal vertebral artery is occluded near the level of the foramen magnum. Basilar artery demonstrates an 8 mm length segment of occlusion likely related to thrombus. Currently, the posterior cerebral artery blood flow is supplied by patent posterior communicating arteries bilaterally. Michael Hoover MD Head CT 03/08/17 0000 Signed Impressions: Service Date/Time: Wednesday, March 08, 2017 15:46 - CONCLUSION: 1. No acute intracranial abnormality is identified. 2. Chronic changes include moderate to severe periventricular white matter low attenuation characteristic of chronic microvascular ischemia and old lacune in the right basal ganglia. Michael Hoover MD Chest X-Ray 03/08/17 0000 Signed Impressions: Service Date/Time: Wednesday, March 08, 2017 16:24 - CONCLUSION: 1. Approximately 1 cm nodular opacity in the central right lower lung zone likely reflects an enlarged pulmonary vessel on end. Consider formal PA and lateral views of the chest for better evaluation once patient is more stable. Aidan Becerra MD Micro and Labs Laboratory Tests Test 03/08/17 15:45 03/08/17 16:06 03/08/17 17:00 03/08/17 18:45 White Blood Count 9.9 Red Blood Count 4.88 Hemoglobin 16.2 Hematocrit 45.5 Mean Corpuscular Volume 93.4 Mean Corpuscular Hemoglobin 33.2 Mean Corpuscular Hemoglobin Concent 35.6 Red Cell Distribution Width 12.1 Platelet Count 245 Mean Platelet Volume 8.0 Neutrophils (%) (Auto) 61.0 Lymphocytes (%) (Auto) 25.6 Monocytes (%) (Auto) 9.3 Eosinophils (%) (Auto) 3.4 Basophils (%) (Auto) 0.7 Neutrophils # (Auto) 6.0 Lymphocytes # (Auto) 2.5 Monocytes # (Auto) 0.9 Eosinophils # (Auto) 0.3 Basophils # (Auto) 0.1 CBC Comment DIFF FINAL Differential Comment Prothrombin Time 10.6 Prothromb Time International Ratio 1.0 Activated Partial Thromboplast Time 22.8 Fibrinogen 450 Ethyl Alcohol Level LESS THAN 3 Bedside Hemoglobin 15.3 Bedside Hematocrit 45.0 Bedside Sodium 140 Bedside Potassium 3.3 Bedside Chloride 104 Bedside Blood Urea Nitrogen 13 Bedside Creatinine 0.8 Bedside Glucose 103 Total Creatine Kinase 64 Troponin I LESS THAN 0.02 Urine Color LIGHT-YELLOW Urine Turbidity CLEAR Urine pH 8.0 Urine Specific [place] 1.040 Urine Protein NEG Urine Glucose (UA) NEG Urine Ketones 80 Urine Occult Blood NEG Urine Nitrite NEG Urine Bilirubin NEG Urine Urobilinogen LESS THAN 2.0 Urine Leukocyte Esterase NEG Urine RBC LESS THAN 1 Urine WBC LESS THAN 1 Urine Squamous Epithelial Cells <1 Urine Opiates Screen NEG Urine Barbiturates Screen NEG Urine Amphetamines Screen NEG Urine Benzodiazepines Screen NEG Urine Cocaine Screen NEG Urine Cannabinoids Screen NEG Nasal Screen MRSA (PCR) MRSA NOT DETECTED Cas Jamil MD Mar 09, 2017 15:29
--- NOTE | 2017-03-09 17:29 | RADRPT ---
EXAM DATE/TIME: 03/09/2017 17:04 [facility] COMPARISON: CT BRAIN W/O CONTRAST, March 08, 2017, 15:46. INDICATIONS : Stroke. Post TPA evaluation. RADIATION DOSE: 39.24 CTDIvol (mGy) MEDICAL HISTORY : Hypertension. Dementia. Cardiovascular disease Diabetes. SURGICAL HISTORY : Coronary artery stent. ENCOUNTER: Subsequent ACUITY: 1 day PAIN SCALE: Non-responsive LOCATION: Bilateral cranial TECHNIQUE: Multiple contiguous axial images were obtained of the head. Using automated exposure control and adj ustment of the mA and/or kV according to patient size, radiation dose was kept as low as reasonably a chievable to obtain optimal diagnostic quality images. DICOM format image data is available electro nically for review and comparison. FINDINGS: Chronic to severe periventricular and subcortical white matter small vessel ischemic changes are again noted bilaterally. Scattered old lacunar infarcts are noted within the bilateral basal ganglia. The ventricles, sulci and cisterns are unchanged compared to the previous examination. There is no a cute infarct, acute hemorrhage, mass effect or extra-axial fluid collections. The bone windows are unrema rkable. Mucosal thickening is noted within the visualized portions of the maxillary sinuses and ethmoid air c ells. There is probable nasal polyp within the posterior aspect of the nasal cavity extending into the nasophary nx. CONCLUSION: 1. Chronic moderate to severe periventricular and subcortical white matter small vessel ischemic amy nges bilaterally. 2. Scattered old lacunar infarcts within the bilateral basal ganglia. 3. Stable mild cerebral atrophy. 4. No acute infarct, acute hemorrhage, mass effect or extra-axial fluid collections. 5. Probable nasal polyp extending into the nasopharynx from the right posterior nasal cavity. 6. Mild mucosal thickening involving the maxillary and ethmoid sinuses. Tavares Parr MD on March 09, 2017 at 17:11 Board Certified Radiologist. This report was verified electronically.
--- NOTE | 2017-03-09 17:37 | ECHRPT ---
Indication: cva/tia CONCLUSIONS The left ventricular systolic function is hyperdynamic with an estimated ejection fraction in the ra nge of 65- 70%. Normal left ventricular size. There is assymetric septal hypertrophy. No regional wall motion abnormalities are present. Doppler parameters are consistent with impaired left ventricular relaxtion (grade 1 diastolic dysfun ction). [id number] mitral valve regurgitation. No mitral valve stenosis. Aortic valve sclerosis is present. No aortic valve stenosis. No aortic valve regurgitation. There is mild tricuspid valve regurgitation. The pulmonary valve is not well visualized. BP: / HR: Rhythm: MEASUREMENTS (Male / Female) Normal Values Technical Quality:Good 2D ECHO LV Diastolic Diameter PLAX 4.0 cm 4.2 - 5.9 / 3.9 - 5.3 cm LV Systolic Diameter PLAX 2.8 cm IVS Diastolic Thickness 1.2 cm 0.6 - 1.0 / 0.6 - 0.9 cm LVPW Diastolic Thickness 0.7 cm 0.6 - 1.0 / 0.6 - 0.9 cm LV Relative Wall Thickness 0.5 RV Internal Dim ED PLAX 3.6 cm M-MODE Aortic Root Diameter MM 3.0 cm LA Systolic Diameter MM 3.5 cm LA Ao Ratio MM 1.2 AV Cusp Separation MM 1.5 cm DOPPLER MV Area PHT 2.1 cm LV E' Lateral Velocity 9.5 cm/s LV E' Septal Velocity 9.6 cm/s FINDINGS LEFT VENTRICLE The left ventricular systolic function is hyperdynamic with an estimated ejection fraction in the ra nge of 65- 70%. Normal left ventricular size. There is assymetric septal hypertrophy. No regional wall motion abnormalities are present. Doppler parameters are consistent with impaired left ventricular relaxtion (grade 1 diastolic dysfun ction). RIGHT VENTRICLE Normal right ventricular size and systolic function. LEFT ATRIUM The left atrial size is normal. RIGHT ATRIUM The right atrial size is normal. ATRIAL SEPTUM Normal atrial septal thickness without atrial level shunting by limited color doppler interrogation. AORTA The aortic root and proximal ascending aorta are normal in size on limited imaging. MITRAL VALVE Structurally normal mitral valve. [id number] mitral valve regurgitation. No mitral valve stenosis. AORTIC VALVE Aortic valve sclerosis is present. No aortic valve stenosis. No aortic valve regurgitation. TRICUSPID VALVE Structurally normal tricuspid valve. There is mild tricuspid valve regurgitation. PULMONARY VALVE The pulmonary valve is not well visualized. VESSELS The inferior vena cava is normal in size. PERICARDIUM No pericardial effusion. Sin Jarrett MD, FACC, FSCAI (Electronically Signed) Final Date:09 March 2017 17:36
--- NOTE | 2017-03-09 18:34 | EKG ---
Date Performed: 03/08/2017 Time Performed: 16:16:13 PTAGE: 76 years EKG: Sinus rhythm WITH FIRST DEGREE AV BLOCK ABNORMAL ECG PREVIOUS TRACING : 05/23/2011 08.17 Compared to prior tracing no significant change DOCTOR: Mara Odom Interpretating Date/Time 03/09/2017 18:32:36
[2017-03-09] MEDS: PRAVASTATIN SOD 80 MG TAB PO SCH (20:23)
[2017-03-09 21:36] LABS: BICARBONATE 20.3 MEQ/L (21.0-32.0); POTASSIUM 3.2 MEQ/L (3.5-5.1)
[2017-03-09] MEDS: hydrALAZINE HCL 20 MG/ML VIAL IV PUSH PRN (23:51)
[2017-03-10] VITALS (13 sets, daily range): BP systolic 125–158; BP diastolic 67–87; PULSE 61–92; RESP 16–24; TEMP 97.4–98.2; O2SAT 96–98
[2017-03-10] MEDS: hydrALAZINE HCL 20 MG/ML VIAL IV PUSH PRN ×2 (03:03→05:13)
[2017-03-10] MEDS: INSULIN ASPART SUPPLEMENTAL SCALE SQ SCH ×4 (06:00→20:21)
--- NOTE | 2017-03-10 06:27 | HHI.CCPN ---
Subjective Remarks/Hospital Course 76 y/o man right handed man developed garbled speech and confusion. 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 Received tPA about 3 hours after onset. Initially very weak right arm. After tPA he has improved motor strength right arm, but not normal. History significant for diabetes, cured by gastric bypass surgery. Heavy alcohol consumption history, now on Antabuse and not drinking. Has had diagnosis of dementia since 2015. Neurology consult expressed concern about risk of bleed after tPA, will control BP appropriately with that in mind. 03/09 Following simple commands. Answers yes/no questions and denies complaint. Followup CT brain this afternoon. Cardene on standby. Reviewed telemetry, sinus rhythm. Subjective: 03/10 Speech therapy evaluated swallow and recommends mechanical soft and liquids. Walked hallway today with RN, shuffling gait. Severe expressive aphasia is profoundly improved. Discussed code status and he seems to understand the concept. States that he desires DNR/DNI which confirms what his indicated yesterday. RN from overnight said he was ,. Objective Vital Signs Date Time Temp Pulse Resp B/P (MAP) Pulse Ox O2 Delivery O2 Flow Rate FiO2 03/10/17 04:00 97.5 80 24 158/79 (105) 98 03/09/17 19:30 Nasal Cannula 2.00 Result Diagram: 03/08/17 1545 03/09/172102 Objective Remarks GENERAL: Sitting up in bedside chair, alert and conversant, eating tray of food. SKIN: Warm and dry. HEAD: Atraumatic. EYES: 2mm and sluggishly reactive. EOMI with no nystagmus. No scleral icterus. ENT: No nasal bleeding or discharge. Mucous membranes moist. NECK: Trachea midline. No JVD. CARDIOVASCULAR: Regular rate and rhythm, sinus rhythm on the monitor with rate 70-80. soft 2/6 systolic murmur left lower sternal border RESPIRATORY: Clear to auscultation. Breath sounds equal bilaterally. Airway patent GASTROINTESTINAL: Abdomen soft, non-tender, nondistended. Bowel sounds present : Voiding MUSCULOSKELETAL: Extremities without clubbing, cyanosis, or edema. No obvious deformities. NEUROLOGICAL: Awake and alert. Oriented to person, place. Aware he had a stroke. Normal naming. Extraocular movements are intact with no nystagmus. No facial droop. Tongue protrusion is midline. Intact sensation to soft touch face and extremities. No pronator drift. Strength 5 out of 5 biceps and triceps. 4/5 L plantar flexion ankle, 5/5 R plantar flexion ankle, 5/5 bilat hamstrings, 5/5 bilat hip flexors. Normal finger to nose bilaterally. A/P Assessment and Plan NEURO: Acute ischemic stroke, vertebrobasilar H/o Alcohol dependence Dementia CTA brain 03/08 - Occlusion of right distal vertebral artery. 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 Posterior cerebral artery flow supplied by Pcom CT brain 03/08 - chronic moderate to severe periventricular white matter changes characteristic of chronic microvascular ischemia, old lacune R basal ganglia. Received tPA 03/08. Was not a candidate for IR intervention No antiplatelet therapy for 24 hours status post TPA Repeat head CT no hemorrhage Dual antiplatelet therapy with ASA 81 and Plavix 75 daily per d/w Dr. Jamil. requested discuss with Dr. Medina because she states she was previously told for him not to be on ASA (though he has been on ASA 81 as outpatient per cardiology). No prior GI bleeding noted upon record review and denies GI bleeding. Discussed with Dr. Medina and he agrees it is in patients best interest to proceed with DAPT, needs to be on concomitant PPI. Called to update but no answer x2 phone numbers. Patient updated. CTA neck - occlusion distal right vertebral artery around C1 near level of foramen magnum. No significant stenosis of carotids. Sinus rhythm on telemetry Echo as per below Likely initiate antiplatelet therapy today, will confer with neurology. Continue statin Neurology following, Dr. Jamil. PT/OT/ST H/o dementia dx'd 2 years ago. Prior to admission was becoming lost while driving and trying to keep him from driving. Mostly dresses himself, with occasional assist due to improper dressing. Showers and feeds self. 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 not able to operate the lawnmower, getting confused with garage door assembler. Shuffling gait but would not use walker or cane. Mostly sits and watches TV. RESP: Monitoring for airway protection. On nasal cannula. IS q1 hour now but able to cooperate CV: Hypertension Hyperlipidemia Grade 1 diastolic dysfunction On telemetry monitoring. In sinus rhythm. EKG 03/08/17 -NSR rate 77. 1st degree AVB. No ST/T abnormalities. Cardene drip on hold. Maintaining blood pressure less than 160/90 per neurology recommendation 2-D echo 03/09/17 Hyperdynamic LV function with EF 65-70%. Asymmetric septal hypertrophy. No regional wall motion abnormalities. Grade 1 diastolic dysfunction. Mild TR Home medications simvastatin 40 mg by mouth daily at bedtime, enalapril 10 mg by mouth twice a day. HCTZ 25 mg daily and enalapril 10 mg daily. Pravastatin 80 g by mouth daily at bedtime. GI: Speech therapy evaluated and recommended mechanical soft and liquids. Patient is tolerating 1800-calorie ADA FEN/RENAL: Moreno removed 03/10 7 AM KVO IVF ICU electrolyte replacement protocol. ID: Monitor for signs and symptoms of infection HEME: Hemoglobin 16.2 on admission with normal platelet counts. Status post TPA . No clinical evidence for bleeding ENDO: Low-dose insulin sliding scale changed to bedside glucose ac/hs PROPH: SCDs for DVT prophylaxis. No pharmacologic DVT prophylaxis for 24 hours post TPA, likely can initiate today after confer w/ neurolgoy. Protonix 40 mg daily while on dual antiplatelet therapy due to h/o danni en Y gastric bypass. ACCESS: Peripheral IV providing adequate access at this time. Discussed with Dr. Jamil and Dr. Medina. 03/09 Patient has a living will that states he would not want to dying process prolonged in the setting of terminal condition, end-stage condition, vegetative state. His states that he would wish to be DNR/DNI. CODE STATUS changed. 03/10 patient is now capable of communicating and appears to understand the content of the conversation about CODE STATUS. He confirms he wishes to be DNR/ DNI Transfer to floor. Consult hospitalist to assume care 03/11 Level 2 Gloria Flores MD Mar 10, 2017 06:27
[2017-03-10] MEDS: PANTOPRAZOLE SODIUM 40 MG VIAL IV PUSH SCH (07:34)
[2017-03-10] MEDS: ENALAPRIL MALEATE 10 MG TAB PO SCH (07:34)
[2017-03-10] MEDS: HYDROCHLOROTHIAZIDE 25 MG TAB PO SCH (07:34)
[2017-03-10] MEDS: SODIUM CHLOR 0.9% 1000 ML INJ 1,000 ML IV SCH (12:14)
[2017-03-10 14:00] LABS: AUTOMATED NEUTROPHIL # 6.7 TH/MM3 (1.8-7.7); BASOPHIL # 0.1 TH/MM3 (0-0.2); BASOPHIL % 0.8 % (0.0-2.0); EOSINOPHIL # 0.3 TH/MM3 (0-0.4); EOSINOPHIL % 3.4 % (0.0-4.0); HEMATOCRIT 45.8 % (39.0-51.0); HEMO FLAGS DIFF FINAL; LYMPH % 18.9 % (9.0-44.0); LYMPHOCYTE # 1.9 TH/MM3 (1.0-4.8); MEAN CELL VOLUME 94.8 FL (80.0-100.0); MEAN CORPUSCULAR HEMOGLOBIN 32.4 PG (27.0-34.0); MEAN CORPUSCULAR HGB CONC 34.2 % (32.0-36.0); MONO % 9.4 % (0.0-8.0); NEUT % 67.5 % (16.0-70.0); PLATELET COUNT 255 TH/MM3 (150-450); RED BLOOD COUNT 4.83 MIL/MM3 (4.50-5.90); RED CELL DISTRIBUTION WIDTH 12.7 % (11.6-17.2); WHITE BLOOD COUNT 9.9 TH/MM3 (4.0-11.0)
[2017-03-10 14:25] LABS: ALT (GPT) 37 U/L (12-78); ANION GAP 11 MEQ/L (5-15); AST (GOT) 28 U/L (15-37); BICARBONATE 20.8 MEQ/L (21.0-32.0); BLOOD UREA NITROGEN 8 MG/DL (7-18); CHLORIDE 105 MEQ/L (98-107); GLOMERULAR FILTRATION RATE 93 ML/MIN (>89); POTASSIUM 3.7 MEQ/L (3.5-5.1); SODIUM (NA) 137 MEQ/L (136-145)
[2017-03-10 14:27] LABS: ALKALINE PHOSPHATASE 83 U/L (45-117); TOTAL BILIRUBIN ADULT 0.7 MG/DL (0.2-1.0)
[2017-03-10] MEDS ORDERED: GLUCAGON 1 MG/ML VIAL OTHER PRN (15:00)
[2017-03-10] MEDS ORDERED: DEXTROSE 50% IN WATER 50 ML VIAL(D50) IV PRN (15:00)
--- NOTE | 2017-03-10 17:33 | HHI.PR ---
Review/Management Diagnosis 1. Acute ischemic thrombotic posterior circulation stroke. 2. Hypertension. 3. History of chronic alcoholism. 4. Dementia. Plan - Neuro checks q. 4 hourly. - Maintain blood pressure less than 160/90. - Aspirin 81mg daily - Add Plavix after consult with GI surgeon - SCD, DVT prophylaxis. - GI prophylaxis. - May be transferred to progressive unit - Discussed case with attending and RN Diagnosis/Plan: Subjective Subjective Comments No acute events reported Stable at bed side Head CT scan is stable is concerned regarding DUAT, given patient's previous gastric sleeve surgery Active Medications Current Medications Medications (Trade) Dose Ordered Sig/Rafael Route Start Time Stop Time Status Last Admin Sodium Chloride 1,000 ml @ 20 mls/hr Q24H IV 03/08/17 17:10 03/10/17 12:14 (Pravachol) 80 mg HS PO 03/08/17 21:00 03/09/17 20:23 (Trandate Inj) 20 mg Q3H PRN IV PUSH 03/08/17 18:15 (Apresoline Inj) 10 mg Q30M PRN IV PUSH 03/08/17 18:15 03/10/17 05:13 Nicardipine HCl 25 mg/Sodium Chloride 260 ml @ 52 mls/hr Q5H PRN IV 03/08/17 18:03 03/09/17 18:19 (Vasotec) 10 mg DAILY PO 03/09/17 09:00 03/10/17 07:34 (Hydrodiuril) 25 mg DAILY PO 03/09/17 09:00 03/10/17 07:34 Potassium Chloride 100 ml @ 50 mls/hr Q2H PRN IV 03/08/17 21:45 Potassium Chloride 100 ml @ 50 mls/hr Q2H PRN IV 03/08/17 21:45 (K-Lyte Cl Eff) 50 meq UNSCH PRN PO 03/08/17 21:45 Potassium Chloride 100 ml @ 25 mls/hr UNSCH PRN IV 03/08/17 21:45 Potassium Chloride 100 ml @ 50 mls/hr Q2H PRN IV 03/08/17 21:45 03/09/17 02:28 Magnesium Sulfate 4 gm/Sodium Chloride 100 ml @ 50 mls/hr UNSCH PRN IV 03/08/17 21:45 (Mag-Ox) 800 mg UNSCH PRN PO 03/08/17 21:45 Magnesium Sulfate 2 gm/Sodium Chloride 100 ml @ 50 mls/hr UNSCH PRN IV 03/08/17 21:45 (K-Phos) 2,000 mg Q4H PRN PO 03/08/17 21:45 Sodium Phosphate 30 mmol/Sodium Chloride 250 ml @ 42 mls/hr UNSCH PRN IV 03/08/17 21:45 (K-Phos) 2,000 mg UNSCH PRN PO/TUBE 03/08/17 21:45 Potassium Phosphate 30 mmol/ Sodium Chloride 260 ml @ 42 mls/hr UNSCH PRN IV 03/08/17 21:45 03/09/17 23:24 (D50w (Vial) Inj) 50 ml UNSCH PRN IV 03/10/17 15:00 (Glucagon Inj) 1 mg UNSCH PRN OTHER 03/10/17 15:00 (NovoLOG SUPPLEMENTAL SCALE) 1 ACHS SLIDING SCALE SQ 03/10/17 16:00 (Aspirin Chew) 81 mg DAILY CHEW 03/10/17 17:30 UNV (Plavix) 75 mg DAILY PO 03/11/17 09:00 UNV (Protonix) 40 mg DAILY PO 03/11/17 09:00 UNV Allergies Allergies Coded Allergies Sulfa (Sulfonamide Antibiotics) (Unverified Allergy, Severe, 03/08/17) Review of Systems All other ROS: ROS reviewed as documented in chart Exam I&O / VS 03/10/17 03/10/17 03/11/17 15:00 23:00 07:00 Intake Total 246 ml 999 ml Balance 246 ml 999 ml IV Total 246 ml 999 ml Vital Signs Date Time Temp Pulse Resp B/P (MAP) Pulse Ox O2 Delivery O2 Flow Rate FiO2 03/10/17 16:00 78 03/10/17 16:00 98.0 78 22 125/67 (86) 96 03/10/17 14:00 78 03/10/17 12:00 98.0 72 20 142/75 (97) 98 03/10/17 12:00 72 03/10/17 10:00 81 03/10/17 08:06 97 Nasal Cannula 2.00 03/10/17 08:00 97.4 84 18 150/83 (105) 97 03/10/17 08:00 84 03/10/17 07:00 97 Nasal Cannula 2.00 03/10/17 06:00 92 03/10/17 04:00 97.5 80 24 158/79 (105) 98 03/10/17 04:00 80 03/10/17 02:00 68 03/10/17 00:00 98.1 70 21 130/71 (90) 97 03/10/17 00:00 70 03/09/17 22:00 79 03/09/17 21:02 74 134/66 03/09/17 20:25 71 139/71 03/09/17 20:00 98.1 71 29 146/69 (94) 97 03/09/17 20:00 71 03/09/17 19:30 97 Nasal Cannula 2.00 03/09/17 19:00 98 Nasal Cannula 4.00 03/09/17 18:19 71 143/65 03/09/17 18:00 76 Exam Comments GENERAL: Awake. oriented, calm. HEENT: Atraumatic, normocephalic. Congested flushed face. Intact hearing. CARDIOVASCULAR: Regular rate and rhythm. RESPIRATORY: Clear to auscultation. No wheezes. GASTROINTESTINAL: Soft, nontender. MUSCULOSKELETAL: Moves four extremities equally. No edema, no cyanosis. NEUROLOGIC: Awake, oriented to person, place or time. no facial asymmetry. No gaze deviation. Pupils 3 mm equal reacting. Moves all extremity. intact speech , 5/5 throughout, reflexes 2+ bilateral, symmetrical. Objective Radiology Results Last [address] 03/09/17 0000 Signed Impressions: Service Date/Time: Thursday, March 09, 2017 17:04 - CONCLUSION: 1. Chronic moderate to severe periventricular and subcortical white matter small vessel ischemic changes bilaterally. 2. Scattered old lacunar infarcts within the bilateral basal ganglia. 3. Stable mild cerebral atrophy. 4. No acute infarct , acute hemorrhage, mass effect or extra-axial fluid collections. 5. Probable nasal polyp extending into the nasopharynx from the right posterior nasal cavity. 6. Mild mucosal thickening involving the maxillary and ethmoid sinuses. Tavares Parr MD Micro and Labs Laboratory Tests Test 03/09/17 21:03 03/10/17 13:37 Blood Urea Nitrogen 8 8 Creatinine 0.72 0.81 Random Glucose 108 112 Calcium Level 7.9 8.9 Phosphorus Level 2.2 Sodium Level 138 137 Potassium Level 3.2 3.7 Chloride Level 109 105 Carbon Dioxide Level 20.3 20.8 Anion Gap 9 11 Estimat Glomerular Filtration Rate 107 93 White Blood Count 9.9 Red Blood Count 4.83 Hemoglobin 15.7 Hematocrit 45.8 Mean Corpuscular Volume 94.8 Mean Corpuscular Hemoglobin 32.4 Mean Corpuscular Hemoglobin Concent 34.2 Red Cell Distribution Width 12.7 Platelet Count 255 Mean Platelet Volume 7.2 Neutrophils (%) (Auto) 67.5 Lymphocytes (%) (Auto) 18.9 Monocytes (%) (Auto) 9.4 Eosinophils (%) (Auto) 3.4 Basophils (%) (Auto) 0.8 Neutrophils # (Auto) 6.7 Lymphocytes # (Auto) 1.9 Monocytes # (Auto) 0.9 Eosinophils # (Auto) 0.3 Basophils # (Auto) 0.1 CBC Comment DIFF FINAL Differential Comment Total Protein 7.6 Albumin 3.5 Alkaline Phosphatase 83 Aspartate Amino Transf (AST/SGOT) 28 Alanine Aminotransferase (ALT/SGPT) 37 Total Bilirubin 0.7 Cas Jamil MD Mar 10, 2017 17:33
[2017-03-10] MEDS: ASPIRIN 81 MG CHEW TAB CHEW SCH (19:18)
[2017-03-10] MEDS: PRAVASTATIN SOD 80 MG TAB PO SCH (20:15)
[2017-03-11] VITALS (9 sets, daily range): BP systolic 122–175; BP diastolic 69–101; PULSE 65–83; RESP 17–20; TEMP 97.3–98.5; O2SAT 96–97
[2017-03-11] MEDS: SODIUM CHLOR 0.9% 1000 ML INJ 1,000 ML IV SCH (06:14)
[2017-03-11] MEDS: INSULIN ASPART SUPPLEMENTAL SCALE SQ SCH ×4 (06:18→21:00)
[2017-03-11] MEDS: ENALAPRIL MALEATE 10 MG TAB PO SCH (09:00)
[2017-03-11] MEDS: ASPIRIN 81 MG CHEW TAB CHEW SCH (09:00)
[2017-03-11] MEDS: CLOPIDOGREL 75 MG TAB PO SCH (09:00)
[2017-03-11] MEDS: PANTOPRAZOLE SOD 40 MG DELAYED RELEASE TAB PO SCH (09:00)
[2017-03-11] MEDS: HYDROCHLOROTHIAZIDE 25 MG TAB PO SCH (09:00)
--- NOTE | 2017-03-11 15:53 | HHI.PR ---
Subjective Remarks Pt without any complaints. Still with some mild expressive deficits He is anxious to go home. Pt has had improving mobility in the RUE Objective Vitals Vital Signs Date Time Temp Pulse Resp B/P (MAP) Pulse Ox O2 Delivery O2 Flow Rate FiO2 03/11/17 12:28 97.3 70 18 132/69 (90) 96 03/11/17 11:06 96 03/11/17 08:17 97.6 68 18 175/93 (120) 96 03/11/17 08:00 Room Air 21 03/11/17 08:00 76 03/11/17 04:00 97.5 66 20 140/101 (114) 97 03/11/17 03:49 82 03/11/17 00:39 98.5 65 17 149/81 (103) 97 03/10/17 21:40 97 21 03/10/17 20:00 83 03/10/17 20:00 98.2 77 16 145/73 (97) 96 03/10/17 20:00 98.0 76 18 138/87 (104) 97 03/10/17 19:00 96 Room Air 03/10/17 18:00 61 03/10/17 16:00 78 03/10/17 16:00 98.0 78 22 125/67 (86) 96 Result Diagram: 03/10/17 1337 03/10/17 1337 Other Results Laboratory Tests Test 03/09/17 21:03 03/10/17 13:37 Blood Urea Nitrogen 8 MG/DL 8 MG/DL Creatinine 0.72 MG/DL 0.81 MG/DL Random Glucose 108 MG/DL 112 MG/DL Calcium Level 7.9 MG/DL 8.9 MG/DL Phosphorus Level 2.2 MG/DL Sodium Level 138 MEQ/L 137 MEQ/L Potassium Level 3.2 MEQ/L 3.7 MEQ/L Chloride Level 109 MEQ/L 105 MEQ/L Carbon Dioxide Level 20.3 MEQ/L 20.8 MEQ/L Anion Gap 9 MEQ/L 11 MEQ/L Estimat Glomerular Filtration Rate 107 ML/MIN 93 ML/MIN White Blood Count 9.9 TH/MM3 Red Blood Count 4.83 MIL/MM3 Hemoglobin 15.7 GM/DL Hematocrit 45.8 % Mean Corpuscular Volume 94.8 FL Mean Corpuscular Hemoglobin 32.4 PG Mean Corpuscular Hemoglobin Concent 34.2 % Red Cell Distribution Width 12.7 % Platelet Count 255 TH/MM3 Mean Platelet Volume 7.2 FL Neutrophils (%) (Auto) 67.5 % Lymphocytes (%) (Auto) 18.9 % Monocytes (%) (Auto) 9.4 % Eosinophils (%) (Auto) 3.4 % Basophils (%) (Auto) 0.8 % Neutrophils # (Auto) 6.7 TH/MM3 Lymphocytes # (Auto) 1.9 TH/MM3 Monocytes # (Auto) 0.9 TH/MM3 Eosinophils # (Auto) 0.3 TH/MM3 Basophils # (Auto) 0.1 TH/MM3 CBC Comment DIFF FINAL Differential Comment Total Protein 7.6 GM/DL Albumin 3.5 GM/DL Alkaline Phosphatase 83 U/L Aspartate Amino Transf (AST/SGOT) 28 U/L Alanine Aminotransferase (ALT/SGPT) 37 U/L Total Bilirubin 0.7 MG/DL Imaging Last Impressions Head CT 03/09/17 Signed Impressions: Service Date/Time: Thursday, March 09, 2017 17:04 - CONCLUSION: 1. Chronic moderate to severe periventricular and subcortical white matter small vessel ischemic changes bilaterally. 2. Scattered old lacunar infarcts within the bilateral basal ganglia. 3. Stable mild cerebral atrophy. 4. No acute infarct , acute hemorrhage, mass effect or extra-axial fluid collections. 5. Probable nasal polyp extending into the nasopharynx from the right posterior nasal cavity. 6. Mild mucosal thickening involving the maxillary and ethmoid sinuses. Tavares Parr MD Neck CTA 03/08/17 Signed Impressions: Service Date/Time: Wednesday, March 08, 2017 15:54 - CONCLUSION: 1. 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 2. Mild atherosclerotic calcification in the carotid bulbs bilaterally. However , no significant stenosis is present within either internal carotid artery. Michael Hoover MD Head CTA 03/08/17 Signed Impressions: Service Date/Time: Wednesday, March 08, 2017 15:54 - CONCLUSION: The right distal vertebral artery is occluded near the level of the foramen magnum. Basilar artery demonstrates an 8 mm length segment of occlusion likely related to thrombus. Currently, the posterior cerebral artery blood flow is supplied by patent posterior communicating arteries bilaterally. Mcihael Hoover MD Chest X-Ray 8/25/17 0000 Signed Impressions: Service Date/Time: Wednesday, March 08, 2017 16:24 - CONCLUSION: 1. Approximately 1 cm nodular opacity in the central right lower lung zone likely reflects an enlarged pulmonary vessel on end. Consider formal PA and lateral views of the chest for better evaluation once patient is more stable. Aidan Becerra MD Objective Remarks General: NAD, alert and oriented to person, place and time Chest: CTA Cardiac: Regular Abd: +BS, soft ND/NT Ext: No edema Neuro: equal strength in bilateral UE and LE A/P Problem List: (1) Acute CVA (cerebrovascular accident) ICD Codes: I63.9 - Cerebral infarction, unspecified Status: Acute Plan: - Pt is a 76 y/o male with HTN, hyperlipidemia, dementia and hx of alcohol abuse - Pt was admitted on 03/08 with garbled speech and confusion and RUE weakness. - CTA brain (03/08) --> Occlusion of right distal vertebral artery. 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 Posterior cerebral artery flow supplied by Pcom - CT brain (03/08) --> chronic moderate to severe periventricular white matter changes characteristic of chronic microvascular ischemia, old lacune R basal ganglia. - CTA neck - occlusion distal right vertebral artery around C1 near level of foramen magnum. No significant stenosis of carotids - Pt received tPA 03/08. He was not a candidate for IR intervention - Repeat head CT with no hemorrhage - Dual antiplatelet therapy with ASA 81 and Plavix 75 daily was started per neurology. The DAPT was discussed with Dr. Tatum as the pt has hx of previous gastric sleeve surgery and according to the intensivists notes, Dr. Tatum agreed that it was in the patients best interest to proceed with DAPT along with concomitant PPI. - Home medications simvastatin 40 mg by mouth daily at bedtime, enalapril 10 mg by mouth twice a day, and HCTZ 25 mg daily, these have been resumed. - Telemetry with NSR - 2-D echo (03/09/17) - Hyperdynamic LV function with EF 65-70%. - Asymmetric septal hypertrophy. - No regional wall motion abnormalities. - Grade 1 diastolic dysfunction. - Mild TR - PT/OT/ST - Pt recommended for soft diet with thin liquids - Anticipate discharge in the next 1-2 days (2) HTN (hypertension) ICD Codes: I10 - Essential (primary) hypertension Plan: - Home meds have been resumed - Monitor (3) Hyperlipidemia ICD Codes: E78.5 - Hyperlipidemia, unspecified Plan: - Home meds resumed (4) History of alcohol abuse ICD Codes: Z87.898 - Personal history of other specified conditions Plan: - Pt with hx of alcohol abuse, now on Antabuse and has not been drinking. (5) Dementia ICD Codes: F03.90 - Unspecified dementia without behavioral disturbance Plan: - Pt diagnosed with dementia in 2014 - Per the intensivists notes, prior to admission pt had been becoming lost while driving and has been trying to keep him from driving. Mostly dresses himself, with occasional assistance due to improper dressing. Showers and feeds self. 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 not able to operate the lawnmower, getting confused with garage indoor landscape architect. Shuffling gait but would not use walker or cane. Mostly sits and watches TV. (6) Diastolic dysfunction ICD Codes: I51.9 - Heart disease, unspecified Assessment and Plan Patient examined. Assessment and plan formulated with Dorothy Saldana PA-C. I agree with the above. Problem Qualifiers (1) HTN (hypertension): Qualified Codes: I10 - Essential (primary) hypertension (2) Dementia: Qualified Codes: F03.90 - Unspecified dementia without behavioral disturbance Dorothy Saldana Mar 11, 2017 15:53 Jm Sky DO Mar 13, 2017 10:34
[2017-03-11 16:15] LABS: LDL CHOLESTEROL 40 MG/DL (0-99)
[2017-03-11 16:31] LABS: HEMOGLOBIN A1a 0.9 %; HEMOGLOBIN Ao 84.1 %; HEMOGLOBIN F 0.8 %; HEMOGLOBIN LA1C 2.5 %; HEMOGLOBIN P3 5.8 %
[2017-03-11] MEDS: PRAVASTATIN SOD 80 MG TAB PO SCH (22:50)
[2017-03-12] VITALS (8 sets, daily range): BP systolic 116–179; BP diastolic 80–104; PULSE 64–89; RESP 16–20; TEMP 97.1–98.2; O2SAT 96–98
[2017-03-12] MEDS: INSULIN ASPART SUPPLEMENTAL SCALE SQ SCH ×4 (07:00→21:39)
[2017-03-12] MEDS: CLOPIDOGREL 75 MG TAB PO SCH (08:37)
[2017-03-12] MEDS: PANTOPRAZOLE SOD 40 MG DELAYED RELEASE TAB PO SCH (08:37)
[2017-03-12] MEDS: HYDROCHLOROTHIAZIDE 25 MG TAB PO SCH (08:37)
[2017-03-12] MEDS: ENALAPRIL MALEATE 10 MG TAB PO SCH (08:37)
[2017-03-12] MEDS: ASPIRIN 81 MG CHEW TAB CHEW SCH (08:38)
[2017-03-12 11:15] LABS: BICARBONATE 19.9 MEQ/L (21.0-32.0); POTASSIUM 3.3 MEQ/L (3.5-5.1)
[2017-03-12] MEDS: SODIUM CHLOR 0.9% 1000 ML INJ 1,000 ML IV SCH (12:04)
--- NOTE | 2017-03-12 16:48 | HHI.PR ---
Subjective Remarks No new complaints. Objective Vitals Vital Signs Date Time Temp Pulse Resp B/P (MAP) Pulse Ox O2 Delivery O2 Flow Rate FiO2 03/12/17 15:07 Room Air 21 03/12/17 12:00 98.2 78 16 116/82 (93) 96 03/12/17 11:11 85 03/12/17 08:00 97.1 89 16 179/104 (129) 97 03/12/17 03:46 98.2 79 16 131/83 (99) 98 03/12/17 00:51 98.1 75 16 130/80 (97) 98 03/11/17 21:09 98.2 73 18 131/89 (103) 97 03/12/17 03/12/17 03/13/17 15:00 23:00 07:00 Intake Total 480 ml Balance 480 ml Intake Oral 480 ml IV Total 0 ml # Voids 1 # Bowel Movements 1 Result Diagram: 03/10/17 1337 03/12/17 1014 Imaging Last Impressions Head CT 03/09/17 0000 Signed Impressions: Service Date/Time: Thursday, March 09, 2017 17:04 - CONCLUSION: 1. Chronic moderate to severe periventricular and subcortical white matter small vessel ischemic changes bilaterally. 2. Scattered old lacunar infarcts within the bilateral basal ganglia. 3. Stable mild cerebral atrophy. 4. No acute infarct , acute hemorrhage, mass effect or extra-axial fluid collections. 5. Probable nasal polyp extending into the nasopharynx from the right posterior nasal cavity. 6. Mild mucosal thickening involving the maxillary and ethmoid sinuses. Tavares Parr MD Neck CTA 03/08/17 0000 Signed Impressions: Service Date/Time: Wednesday, March 08, 2017 15:54 - CONCLUSION: 1. 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 2. Mild atherosclerotic calcification in the carotid bulbs bilaterally. However , no significant stenosis is present within either internal carotid artery. Michael Hoover MD Head CTA 03/08/17 0000 Signed Impressions: Service Date/Time: Wednesday, March 08, 2017 15:54 - CONCLUSION: The right distal vertebral artery is occluded near the level of the foramen magnum. Basilar artery demonstrates an 8 mm length segment of occlusion likely related to thrombus. Currently, the posterior cerebral artery blood flow is supplied by patent posterior communicating arteries bilaterally. Michael Hoover MD Chest X-Ray 03/08/17 0000 Signed Impressions: Service Date/Time: Wednesday, March 08, 2017 16:24 - CONCLUSION: 1. Approximately 1 cm nodular opacity in the central right lower lung zone likely reflects an enlarged pulmonary vessel on end. Consider formal PA and lateral views of the chest for better evaluation once patient is more stable. Aidan Becerra MD Objective Remarks General: NAD, alert and oriented to person, place and time Chest: CTA Cardiac: Regular Abd: +BS, soft ND/NT Ext: No edema Neuro: equal strength in bilateral UE and LE A/P Problem List: (1) Acute CVA (cerebrovascular accident) ICD Codes: I63.9 - Cerebral infarction, unspecified Status: Acute Plan: - Pt is a 76 y/o male with HTN, hyperlipidemia, dementia and hx of alcohol abuse - Pt was admitted on 03/08 with garbled speech and confusion and RUE weakness. - CTA brain (03/08) --> Occlusion of right distal vertebral artery. 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 Posterior cerebral artery flow supplied by Pcom - CT brain (03/08) --> chronic moderate to severe periventricular white matter changes characteristic of chronic microvascular ischemia, old lacune R basal ganglia. - CTA neck - occlusion distal right vertebral artery around C1 near level of foramen magnum. No significant stenosis of carotids - Pt received tPA 03/08. He was not a candidate for IR intervention - Repeat head CT with no hemorrhage - Dual antiplatelet therapy with ASA 81 and Plavix 75 daily was started per neurology. The DAPT was discussed with Dr. Tatum as the pt has hx of previous gastric sleeve surgery and according to the intensivists notes, Dr. Tatum agreed that it was in the patients best interest to proceed with DAPT along with concomitant PPI. - Home medications simvastatin 40 mg by mouth daily at bedtime, enalapril 10 mg by mouth twice a day, and HCTZ 25 mg daily, these have been resumed. - Telemetry with NSR - 2-D echo (03/09/17) - Hyperdynamic LV function with EF 65-70%. - Asymmetric septal hypertrophy. - No regional wall motion abnormalities. - Grade 1 diastolic dysfunction. - Mild TR - PT/OT/ST - Pt recommended for soft diet with thin liquids - Anticipate discharge to home with [facility] 03/13/17 (2) HTN (hypertension) ICD Codes: I10 - Essential (primary) hypertension Plan: - Home meds have been resumed - Monitor (3) Hyperlipidemia ICD Codes: E78.5 - Hyperlipidemia, unspecified Plan: - Home meds resumed (4) History of alcohol abuse ICD Codes: Z87.898 - Personal history of other specified conditions Plan: - Pt with hx of alcohol abuse, now on Antabuse and has not been drinking. (5) Dementia ICD Codes: F03.90 - Unspecified dementia without behavioral disturbance Plan: - Pt diagnosed with dementia in 2014 - Per the intensivists notes, prior to admission pt had been becoming lost while driving and has been trying to keep him from driving. Mostly dresses himself, with occasional assistance due to improper dressing. Showers and feeds self. 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 not able to operate the lawnmower, getting confused with garage certified indoor environmentalist. Shuffling gait but would not use walker or cane. Mostly sits and watches TV. (6) Diastolic dysfunction ICD Codes: I51.9 - Heart disease, unspecified Problem Qualifiers (1) HTN (hypertension): Qualified Codes: I10 - Essential (primary) hypertension (2) Dementia: Qualified Codes: F03.90 - Unspecified dementia without behavioral disturbance Jm Sky DO Mar 12, 2017 16:47
--- NOTE | 2017-03-12 17:13 | PD.CONS ---
[facility] Service Rehabilitation Medicine Consult Requested By Dr. Rausch Reason for Consult Comprehensive rehabilitation evaluation. Primary Care Physician Unknown History of Present Illness Jovanni Oseguera is a 76-year-old right-hand dominant male admitted [facility] 03/08/17 with confusion, impaired speech and right upper extremity weakness. Head CT was negative for acute change. He was noted to have chronic moderate to severe periventricular white matter changes. He received IV TPA. CTA showed right distal vertebral artery occlusion and basilar artery millimeters segment occlusion. Echocardiogram shows 65-75% ejection fraction Review of Systems ROS Limitations: Clinical Condition, Altered Mental Status Constitutional: DENIES: Fatigue Eyes: DENIES: Diplopia Ears, nose, mouth, throat: COMPLAINS OF: Hearing loss Respiratory: DENIES: Shortness of breath Cardiovascular: DENIES: Chest pain Gastrointestinal: DENIES: Abdominal pain Genitourinary: DENIES: Urinary incontinence Musculoskeletal: DENIES: Back pain Integumentary: DENIES: Rash Hematologic/lymphatic: DENIES: Bruising Immunologic/allergic: DENIES: Urticaria Neurologic: COMPLAINS OF: Speech Problems, Poor Balance, DENIES: Headache, Localized weakness, Paresthesias Psychiatric: DENIES: Confusion Past Family Social History Allergies: Coded Allergies: Sulfa (Sulfonamide Antibiotics) (Unverified Allergy, Severe, 03/08/17) Past Medical History Hypertension Dementia Hyperlipidemia EtOH abuse Past Surgical History Gastric sleeve Current Medications Current Medications Medications (Trade) Dose Ordered Sig/Rafael Route Start Time Stop Time Status Last Admin Sodium Chloride 1,000 ml @ 20 mls/hr Q24H IV 03/08/17 17:10 03/12/17 12:04 (Pravachol) 80 mg HS PO 03/08/17 21:00 03/11/17 22:50 (Trandate Inj) 20 mg Q3H PRN IV PUSH 03/08/17 18:15 (Apresoline Inj) 10 mg Q30M PRN IV PUSH 03/08/17 18:15 03/10/17 05:13 Nicardipine HCl 25 mg/Sodium Chloride 260 ml @ 52 mls/hr Q5H PRN IV 03/08/17 18:03 03/09/17 18:19 (Vasotec) 10 mg DAILY PO 03/09/17 09:00 03/12/17 08:37 (Hydrodiuril) 25 mg DAILY PO 03/09/17 09:00 03/12/17 08:37 (D50w (Vial) Inj) 50 ml UNSCH PRN IV 03/10/17 15:00 (Glucagon Inj) 1 mg UNSCH PRN OTHER 03/10/17 15:00 (NovoLOG SUPPLEMENTAL SCALE) 1 ACHS SLIDING SCALE SQ 03/10/17 16:00 03/11/17 11:00 (Aspirin Chew) 81 mg DAILY CHEW 03/10/17 17:30 03/11/17 09:00 (Plavix) 75 mg DAILY PO 03/11/17 09:00 03/12/17 08:37 (Protonix) 40 mg DAILY PO 03/11/17 09:00 03/12/17 08:37 (KCl) 20 meq ONCE ONCE PO 03/12/17 17:30 03/12/17 17:31 Family History Noncontributory to the history of present illness Social History Prior to admission patient was living with his in [facility]. He was independent with ambulation but required supervision due to dementia. Exam I&O / VS 03/12/17 03/12/17 03/13/17 15:00 23:00 07:00 Intake Total 480 ml Balance 480 ml Intake Oral 480 ml IV Total 0 ml # Voids 1 # Bowel Movements 1 Vital Signs Date Time Temp Pulse Resp B/P (MAP) Pulse Ox O2 Delivery O2 Flow Rate FiO2 03/12/17 15:07 Room Air 21 03/12/17 12:00 98.2 78 16 116/82 (93) 96 03/12/17 11:11 85 03/12/17 08:00 97.1 89 16 179/104 (129) 97 03/12/17 03:46 98.2 79 16 131/83 (99) 98 03/12/17 00:51 98.1 75 16 130/80 (97) 98 03/11/17 21:09 98.2 73 18 131/89 (103) 97 General: No acute distress, Other (sitting up in a bedside chair) Respiratory: Lungs CTA, Non-labored respirations, BS equal Gastrointestinal: Positive Bowel Sounds, Non-Distended, Non-Tender Cardiovascular: Normal rate, Normal peripheral perfusion, Regular Rhythm Skin: Other (no rash noted) Musculoskeletal: Swelling (trace in the lower extremities) Psychiatric: Cooperative, Appropriate mood & affect Orientation: oriented to Self, oriented to Place, oriented to Situation, disoriented to Time Neurologic: Cranial Nerves (intact 2 through 12), Speech (clear with mild confusion) Motor: Right Upper Extremity (4+/5), Left Upper Extremity, Right Lower Extremity (5/5), Left Lower Extremity DTRs: Normal Babinski: Negative Clonus: Negative Assessment and Plan Diagnosis: (1) Acute CVA (cerebrovascular accident) ICD Codes: I63.9 - Cerebral infarction, unspecified Status: Acute Assessment 1. Posterior circulation CVA status post TPA 2. Dementia 3. Hypertension 4. Hyperlipidemia 5. Gastric sleep placement 6. History of EtOH abuse Plan 1. Patient is progressing with mobility and now is ambulate with physical therapy 160 feet with a rolling walker contact guard. Would continue to mobilize anticipating patient will progress with mobility but require supervision for safety 2. Speech therapy has evaluated swallow and tolerating soft diet. Moderate to severe cognitive deficits are noted. Patient has history of dementia 3. Occupational therapy is addressing ADLs and now minimal assistance with grooming and upper body dressing and moderate assistance for lower body dressing 4. Continue fall precautions 5. SCDs and continue mobilization for DVT prophylaxis 6. Discussed with Case management and referrals for custodial facility placement are in process per insurance provider 7. We'll follow while hospitalized and at discharge Thank you for this consult Felicita Vega MD Mar 12, 2017 17:13
[2017-03-12] MEDS ORDERED: POTASSIUM CHLORIDE 20 MEQ CONTROLLED RELEASE TAB PO ONE (17:30)
[2017-03-12] MEDS: PRAVASTATIN SOD 80 MG TAB PO SCH (21:41)
[2017-03-13] VITALS: BP 145/75; PULSE 68; RESP 19; TEMP 98; O2SAT 97
[2017-03-13 04:09] VITALS: BP 130/73; PULSE 78; RESP 19; TEMP 96.9; O2SAT 96
[2017-03-13] MEDS: INSULIN ASPART SUPPLEMENTAL SCALE SQ SCH ×2 (06:40→11:00)
[2017-03-13 08:22] VITALS: BP 153/87; PULSE 68; RESP 20; TEMP 97.1; O2SAT 97
[2017-03-13] MEDS ORDERED: GALANTAMINE HYDROBROMIDE 4 MG TAB PO SCH (09:00)
[2017-03-13] MEDS: HYDROCHLOROTHIAZIDE 25 MG TAB PO SCH (09:08)
[2017-03-13] MEDS: PANTOPRAZOLE SOD 40 MG DELAYED RELEASE TAB PO SCH (09:08)
[2017-03-13] MEDS: CLOPIDOGREL 75 MG TAB PO SCH (09:10)
[2017-03-13] MEDS: ASPIRIN 81 MG CHEW TAB CHEW SCH (09:10)
[2017-03-13] MEDS: ENALAPRIL MALEATE 10 MG TAB PO SCH (09:10)
[2017-03-13] MEDS ORDERED: HYDR25TA5 PO (10:15)
[2017-03-13] MEDS ORDERED: PLAV75TA29 PO (10:15)
[2017-03-13] MEDS ORDERED: ASPI81CH25 CHEW (10:15)
[2017-03-13] MEDS ORDERED: GALA4TAB PO (10:15)
[2017-03-13] MEDS ORDERED: PANT40TA3 PO (10:15)
--- NOTE | 2017-03-13 10:35 | HHI.DCPOC ---
Discharge Care Plan Diagnosis: (1) Acute CVA (cerebrovascular accident) (2) Dementia (3) HTN (hypertension) (4) History of alcohol abuse (5) Diastolic dysfunction (6) Hyperlipidemia Goals to Promote Your Health * To prevent worsening of your condition and complications * To maintain your health at the optimal level Directions to Meet Your Goals Take your medications as prescribed Follow your dietary instruction Follow activity as directed Keep your appointments as scheduled Take your immunizations and boosters as scheduled If your symptoms worsen call your PCP, if no PCP go to Urgent Care Center or Emergency Room Smoking is Dangerous to Your Health. Avoid second hand smoke Call the 24-hour hour crisis hotline for domestic abuse at Jm Sky DO Mar 13, 2017 10:35
--- NOTE | 2017-03-13 10:37 | HHI.DS ---
Discharge Summary Admission Date Mar 08, 2017 at 17:09 Discharge Date: Mar 13, 2017 Admitting Diagnosis CVA (1) Acute CVA (cerebrovascular accident) Diagnosis: Principal ICD Codes: I63.9 - Cerebral infarction, unspecified Status: Acute (2) Dementia Diagnosis: Principal ICD Codes: F03.90 - Unspecified dementia without behavioral disturbance (3) HTN (hypertension) Diagnosis: Secondary ICD Codes: I10 - Essential (primary) hypertension (4) Hyperlipidemia Diagnosis: Secondary ICD Codes: E78.5 - Hyperlipidemia, unspecified (5) History of alcohol abuse Diagnosis: Secondary ICD Codes: Z87.898 - Personal history of other specified conditions (6) Diastolic dysfunction Diagnosis: Secondary ICD Codes: I51.9 - Heart disease, unspecified Consultants Dr. Jamil, Neurology Brief History 76 y/o man right handed man developed garbled speech and confusion. 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 Received tPA about 3 hours after onset. Initially very weak right arm. After tPA he has improved motor strength right arm, but not normal. History significant for diabetes, cured by gastric bypass surgery. Heavy alcohol consumption history, now on Antabuse and not drinking. Has had diagnosis of dementia since 2014. Neurology consult expressed concern about risk of bleed after tPA, will control BP appropriately with that in mind. CBC/BMP: 03/10/17 1337 03/12/17 1014 Significant Findings Laboratory Tests Test 03/10/17 13:37 03/11/17 15:32 03/12/17 10:14 Monocytes (%) (Auto) 9.4 % (0.0-8.0) Random Glucose 112 MG/DL (74-106) 158 MG/DL (74-106) Carbon Dioxide Level 20.8 MEQ/L (21.0-32.0) 19.9 MEQ/L (21.0-32.0) HDL Cholesterol 66.0 MG/DL (40.0-60.0) Blood Urea Nitrogen 19 MG/DL (7-18) Potassium Level 3.3 MEQ/L (3.5-5.1) Chloride Level 108 MEQ/L (98-107) Estimat Glomerular Filtration Rate 71 ML/MIN (>89) PE at Discharge General: NAD, alert and oriented to person, place and time Chest: CTA Cardiac: Regular Abd: +BS, soft ND/NT Ext: No edema Neuro: equal strength in bilateral UE and LE Hospital Course (1) Acute CVA (cerebrovascular accident) ICD Codes: I63.9 - Cerebral infarction, unspecified Status: Acute Plan: - Pt is a 76 y/o male with HTN, hyperlipidemia, dementia and hx of alcohol abuse - Pt was admitted on 03/08 with garbled speech and confusion and RUE weakness. - CTA brain (03/08) --> Occlusion of right distal vertebral artery. 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 Posterior cerebral artery flow supplied by Pcom - CT brain (03/08) --> chronic moderate to severe periventricular white matter changes characteristic of chronic microvascular ischemia, old lacune R basal ganglia. - CTA neck - occlusion distal right vertebral artery around C1 near level of foramen magnum. No significant stenosis of carotids - Pt received tPA 03/08. He was not a candidate for IR intervention - Repeat head CT with no hemorrhage - Dual antiplatelet therapy with ASA 81 and Plavix 75 daily was started per neurology. The DAPT (dual antiplatelet therapy) was discussed with Dr. Tatum as the pt has hx of previous gastric sleeve surgery and according to the intensivists notes, Dr. Tatum agreed that it was in the patients best interest to proceed with DAPT along with concomitant PPI. - Home medications simvastatin 40 mg by mouth daily at bedtime, enalapril 10 mg by mouth twice a day, and HCTZ 25 mg daily, these have been resumed. - Telemetry with NSR - 2-D echo (03/09/17) - Hyperdynamic LV function with EF 65-70%. - Asymmetric septal hypertrophy. - No regional wall motion abnormalities. - Grade 1 diastolic dysfunction. - Mild TR - PT/OT/ST - Pt recommended for soft diet with thin liquids - Discharge to SNF today - see discharge orders (2) HTN (hypertension) ICD Codes: I10 - Essential (primary) hypertension Plan: - Home meds have been resumed - Monitor (3) Hyperlipidemia ICD Codes: E78.5 - Hyperlipidemia, unspecified Plan: - Home meds resumed (4) History of alcohol abuse ICD Codes: Z87.898 - Personal history of other specified conditions Plan: - Pt with hx of alcohol abuse, now on Antabuse and has not been drinking. (5) Dementia ICD Codes: F03.90 - Unspecified dementia without behavioral disturbance Plan: - Pt diagnosed with dementia in 2014 - Per the intensivists notes, prior to admission pt had been becoming lost while driving and has been trying to keep him from driving. Mostly dresses himself, with occasional assistance due to improper dressing. Showers and feeds self. 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 not able to operate the lawnmower, getting confused with garage outdoor pursuits instructor. Shuffling gait but would not use walker or cane. Mostly sits and watches TV. Pt Condition on Discharge: Stable Discharge Disposition: Discharge to SNF Discharge Instructions DIET: Follow Instructions for: Heart Healthy Diet Speech Therapy-Diet Recommends: Soft Activities you can perform: Weight Bearing as Lidya Follow up Referrals: Neurology - 3 Weeks with Cas Jamil MD PCP Follow-up - [address] Daan Patel F/U WITH PCP, DR DANA PATEL ONE WEEK AFTER DISCHARGE FROM SNF New Medications: Aspirin (Aspirin Low Strength) 81 Mg Chew 81 MG CHEW DAILY for cva for 30 Days, EA Clopidogrel (Plavix) 75 Mg Tab 75 MG PO DAILY for cva for 30 Days, TAB 0 Refills Galantamine (Galantamine) 4 Mg Tab 8 MG PO BID for dementia for 30 Days, TAB 0 Refills Hydrochlorothiazide (Hydrochlorothiazide) 25 Mg Tab 25 MG PO DAILY for htn for 30 Days, TAB Pantoprazole (Pantoprazole) 40 Mg Tab 40 MG PO DAILY for gi prophylaxis for 30 Days, TAB 0 Refills Continued Medications: Cholecalciferol (Vitamin D3) 1,000 Unit Tab 1000 UNIT .XX Enalapril Maleate & Hydrochlor (Enalapril Maleate/Hydroch) 10 Mg Tab 10 MG PO BID [place]-3 Fatty Acids (Fish Oil) 500 Mg Cap 500 MG PO Probiotic Product (Probiotic Acidophilus) 12.9 Mg (2 Billion Cell) Cap 1 OR BID Simvastatin (Simvastatin) 40 Mg Tab 40 MG OR HS Discontinued Medications: Coenzyme Q10 (Ubidecarenone) (Co Q 10) 100 Mg Cap 100 MG OR Jm Sky DO Mar 13, 2017 10:37
[2017-03-13 11:00] VITALS: PULSE 77
[2017-03-13 11:58] VITALS: BP 114/75; PULSE 81; RESP 20; TEMP 97.4; O2SAT 96
[2017-03-13] MEDS: SODIUM CHLOR 0.9% 1000 ML INJ 1,000 ML IV SCH (12:04)
[2017-03-13 13:05] VITALS: O2SAT 97
== END 2017-03-13 15:03 | DRG 62 ==
LOC: NEPD 15:24 → NEDA 17:09 → N03A 18:34 → N05A 03-10 20:46
PROVIDERS: ADMIT Hospitalist; ATTEND Hospitalist
DX: I63.011 Cerebral infarction due to thrombosis of right vertebral artery (principal); G81.91 Hemiplegia, unspecified affecting right dominant side; F03.90 Unspecified dementia, unspecified severity, without behavioral disturbance, psychotic disturbance, mood disturbance, and anxiety; I11.9 Hypertensive heart disease without heart failure; R47.01 Aphasia; I63.02 Cerebral infarction due to thrombosis of basilar artery; I07.1 Rheumatic tricuspid insufficiency; E78.5 Hyperlipidemia, unspecified; R29.708 NIHSS score 8; Z66 Do not resuscitate; Z88.2 Allergy status to sulfonamides; Z98.84 Bariatric surgery status
CPT/HCPCS: 51702; 70450; 70496; 70498; 71010; 80048; 80053; 80061; 80307; 81001; 82435; 82550; 82565; 82947; 82948; 83036; 84100; 84132; 84295; 84484; 84520; 85025; 85384; 85610; 85730; 86850; 86900; 86901; 87641; 93005; 93306; 94150; 96365; 96375; C9113; J0360; J1815; J2250; J2997; J3010; J3480; J7030; J7050; Q9967